=== PATIENT | female | born 1965 | race Caucasian/White ===

== ENCOUNTER → 2023-10-24 13:58 | Outpatient (BNVA) | payer OTHER, SELFPAY | PROVIDERS: Family Provider Psychiatry & Neurology Neurology; PCP Nurse Practitioner Family; Visit Provider Orthopaedic Surgery | DX: M54.2 Cervicalgia (principal); G89.29 Other chronic pain; M54.9 Dorsalgia, unspecified; M47.22 Other spondylosis with radiculopathy, cervical region | CPT/HCPCS: 72050; 72072 ==

== ENCOUNTER → 2024-02-14 15:00 | Outpatient (BNVA) | payer OTHER, MEDICAID, SELFPAY | PROVIDERS: Family Provider Psychiatry & Neurology Neurology; PCP Nurse Practitioner Family; Visit Provider Family Medicine | DX: I10 Essential (primary) hypertension (principal); E11.9 Type 2 diabetes mellitus without complications | CPT/HCPCS: 80053; 80061; 83036; 85025 ==

== ENCOUNTER 2024-02-27 16:33 | Outpatient (CLI) | payer OTHER, MEDICAID, SELFPAY ==
--- NOTE | 2024-02-27 16:45 | MR_ITS ---
WS: [id number] MRI CERVICAL SPINE NONCONTRAST TECHNIQUE: Sagittal T1, T2 and STIR imaging. Axial T2, gradient, and fiesta imaging. CLINICAL INFORMATION: neck pain COMPARISON: MRI 2013 FINDINGS: Straightening of the normal cervical lordosis. Mild spondylitic changes. Cord signal is normal. Small central protrusions at C4-C6 progressed since 2013. Cord signal is normal. C2-C3: Normal. C3-C4: Moderate RIGHT facet arthropathy. Spinal canal and foramina are patent. C4-C5: Small central disc protrusion. Moderate facet arthropathy. Mild LEFT greater than RIGHT forami nal narrowing. C5-C6: Small central disc osteophyte protrusion. Mild central canal stenosis. Slight contact of the c ervical cord. Mild to moderate LEFT greater than RIGHT bony foraminal narrowing. Mild facet arthropat hy. C6-C7: Tiny shallow central protrusion. Slight contact of the cervical cord. Mild central canal steno sis. Mild LEFT greater than RIGHT foraminal narrowing. C7-T1: Normal. Visualized brain stem structures: Normal. Prevertebral soft tissues: Normal. MR/MR cervical spin wo con* [id number] IMPRESSION: 1. Small central disc protrusions progressed compared to previous at C4-C6. 2. Mild central canal stenosis C5-C6 and C6-C7 with slight contact of the cer vical cord. 3. Mild to moderate LEFT greater than RIGHT bony foraminal narrowing C5-C6. 4. Moderate facet arthropathy RIGHT C3-C4, RIGHT C4-C5.
== END 2024-02-27 16:34 | disposition home or self-care (01) ==
LOC: RAD 16:33
PROVIDERS: PCP Family Medicine; Visit Provider Orthopaedic Surgery
DX: M47.892 Other spondylosis, cervical region (principal); M99.61 Osseous and subluxation stenosis of intervertebral foramina of cervical region
CPT/HCPCS: 72141

== ENCOUNTER 2024-07-09 06:00 | Outpatient (RCR) | payer OTHER, MEDICAID, SELFPAY | END 2024-07-26 23:59 | disposition home or self-care (01) | LOC: WPT 06:00 | PROVIDERS: Visit Provider Nurse Practitioner Family | DX: M54.9 Dorsalgia, unspecified (principal); M54.2 Cervicalgia | CPT/HCPCS: 97161 ==

== ENCOUNTER 2024-07-27 06:00 | Outpatient (RCR) | payer OTHER, MEDICAID, SELFPAY | END 2024-08-26 23:59 | disposition home or self-care (01) | LOC: WPT 06:00 | PROVIDERS: Visit Provider Nurse Practitioner Family | DX: M54.2 Cervicalgia (principal) | CPT/HCPCS: 97110; 97530 ==

== ENCOUNTER 2024-12-27 05:00 | Outpatient (RCR) | payer MEDICAID, SELFPAY | END 2025-01-26 23:59 | disposition home or self-care (01) | LOC: WPT 05:00 | PROVIDERS: PCP Family Medicine; Visit Provider Family Medicine | DX: M54.9 Dorsalgia, unspecified (principal); G89.29 Other chronic pain | CPT/HCPCS: 97161 ==

== ENCOUNTER → 2025-01-01 15:58 | Outpatient (BNVA) | payer OTHER, MEDICAID, SELFPAY | PROVIDERS: PCP Family Medicine; Visit Provider Family Medicine | DX: I10 Essential (primary) hypertension (principal); E11.9 Type 2 diabetes mellitus without complications; M54.9 Dorsalgia, unspecified; G89.29 Other chronic pain; M47.16 Other spondylosis with myelopathy, lumbar region; F41.9 Anxiety disorder, unspecified; E78.00 Pure hypercholesterolemia, unspecified; K02.9 Dental caries, unspecified | CPT/HCPCS: 80053; 80061; 83036; 85025 ==

== ENCOUNTER 2025-01-04 18:58 | Emergency (ER) | payer MEDICAID, SELFPAY ==
--- OUTSIDE RECORDS SUMMARY | 2025-01-04 15:27 | XMS_ITS | Encounter Summary ---
[facility] Organization [facility] Address [address] [place] [address] Care Team Providers Care Timber Management Assistant Name Role Phone Saima Reid DO Primary Care Provider Reason for Visit * Reason Comments Leg Pain Encounter Details Date Type Department Care Team (Late st Contact Info) Description 01/04/2025 3:27 PM CDT - 01/04/2025 6:11 PM CDT Emergency [facility] Emergency Medicine [facility] [address] [address] Harley Renee MD [facility] [address] [address] Acute superficial venous thrombosis of left lower extremity (Primary Dx); Elevated d-dimer Discharge Disposition: Acute Care Hospital Social History Tobacco Use Types Packs/Day Years Used Date Smoking Tobacco: Every Day Cigarettes 0.3 25 Smokeless Tobacco: Never Alcohol Use Standard Drinks/Week Comments Not Currently 0 (1 standard drink = 0.6 oz pur e alcohol) Comments No Sex and Gender Information Value Date Recorded Sex Assigned at Not on file Legal 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 Gender Identity Not on file Sexual Orientation Not on file documented as of this encounter Last Filed Vital Signs Vital Sign Reading Time Taken Comments Blood Pressure 138/77 01/04/2025 6:00 PM CDT Pulse 60 01/04/2025 6:00 PM CDT Temperature 36.7 C (98 F) 01/04/2025 6:00 PM CDT Respiratory Rate 14 01/04/2025 3:32 PM CDT Oxygen Saturation 98% 01/04/2025 6:00 PM CDT Inhaled Oxygen Concentration - - Weight 72.9 kg (160 lb 12.8 oz) 01/04/2025 3:32 PM CDT Height 172.7 cm (5' 8 ) 01/04/2025 3:32 PM CDT Body Mass Index 24.45 01/04/2025 3:32 PM CDT documented in this encounter Medications at Time of Discharge POTASSIUM CHLORIDE ORAL Take by mouth daily. furosemide (LASIX ORAL) Take by mouth daily. atorvastatin (LIPITOR) 10 mg tablet Take 10 mg by mouth daily. metoprolol tartrate (LOPRESSOR) 25 mg tablet Take 25 mg by mouth 2 times daily. celecoxib (CeleBREX) 50 mg capsule Take 50 mg by mouth. amLODIPine (NORVASC) 10 mg tablet Take 10 mg by mouth 2 times daily. HYDROcodone-acet aminophen (NORCO) 10-325 mg Tablet Take 1 Tablet by mouth every 8 hours as needed for Pain, Moderate. gabapentin (NEURONTIN) 100 mg capsule Take 100 mg by mouth 3 times daily. naproxen sodium (ALEVE) 220 mg Tablet Take 220 mg by mouth. insulin aspart protamine-aspart (NovoLOG MIX 70-30) 100 unit/mL (70-30) pen syringeIndicatio ns:Type 2 diabetes mellitus without complication, without long-term current use of insulin ([facility]) Inject 20 Units by subcutaneous injection 2 times daily with meals. 3 mL 10/14/2021 documented as of this encounter ED Notes * Deneen Nguyễn RN - 01/04/2025 4:41 PM CDT Radiology at bedside. This author is working in an alternative role of registered nurse during this documentation. * Deneen Nguyễn RN - 01/04/2025 3:29 PM CDT Keyla Curriestephany 59 y.o. female, arrived to the ED via TRANSPORTATION: private vehicle for complaints of Chief Complaint Patient presents with Leg Pain Patient reports a broken blood vessel in the left anterior ankle and today has developed lower extremity edema and pain. Vitals taken, patient placed on monitor, clothing removed as needed per policy, privacy provided to patient. Respiratory: WDL - Regular rhythm, symmetrical chest expansion, no dyspnea , Cardiac/Circulatory: WDL - No numbness or tingling, no chest pain , Skin: WDL - Normal colorfor ethnicity, skin intact, patient is Alert and Oriented x4, pain scale: 6/10, findings; bleeding:without any bleeding noted. Behavior during evaluation: appropriate. Belongings secured, patient Weapons assessment: denied possession of any weapons or firearms at this time. Patient comforted, all q uestions answered to the best of the staff's ability, education performed, and left patient in the room with the call light in reach, bed in lowest position, wheels locked, side rails up. This author is working in an alternative role of registered nurse during this documentation. * Harley Renee MD - 01/04/2025 3:25 PM CDT HISTORY OF PRESENT ILLNESS History of Present Illness This is a patient with a history of diabetes presenting with leg pain. The patient reports experiencing pain in her leg for the past 2 days. The pain is localized to the area of a visible superficial blood vessel over the anterior aspect of the distal tibia and proximalankle area, and is described as feeling like a needle prick on even light palpation. The pain is exacerbated by touch and is confined to the area around the blood vessel. The patient has not applied any ice or heat to the area. Patient is unsure if she had any notable injury to the left leg in any recent days. Stated because she has not been sleeping well, could have bumped it on something. The patient has sensation in her toes and does not experience any pressure or heat in the affected area. She has a history of varicose veins, venous stasis dermatitis, which have not caused discomfort in the past. PAST MEDICAL HISTORY REVIEWED MEDICAL: Patient has a past medical history of Anxiety, Arthritis, Chronic back pain, Chronic neck pain, Depression, Diabetes mellitus ([facility]), Diabetes mellitus (CMS/HCC) (06/2018), H/O degenerative disc disease, HTN (hypertension), HTN (hypertension), Nerve damage, and Seizure disorder ([facility]). SURGICAL: Patient has a past surgical history that includes appendectomy; tubal ligation; appendectomy; surgical other; hysterectomy (Bilateral, 2003); and hysterectomy (2005). ALLERGIES Hydroxyzine pamoate, Pregabalin, Penicillins, and Sulfa (sulfonamide antibiotics) PHYSICAL EXAM INITIAL VS BP: 128/78 (01/04/25 1532), Heart Rate: (!) 58 bpm (01/04/25 1532), Resp: 14 (01/04/25 1532), Pulse: 68 (01/04/25 1600), Temp: 98 ??F (36.7 ??C) (01/04/25 153), Temp src: Temporal (01/04/25 153), SpO2: 97 % (01/04/25 153), Height: 5' 8 (172.7 cm) (01/04/25 153), Weight: 72.9 kg (160 lb 12.8 oz) (01/04/25 1532), BMI (Calculated): 24.44 (01/04/25 153) No LMP recorded. Patient has had a hysterectomy. Blood pressure 118/74, pulse 68, temperature 98 ??F (36.7 ??C), temperature source Temporal, resp. rate 14, height 5' 8 (1.727 m), weight 72.9 kg (160 lb 12.8 oz), SpO2 95%. Physical Exam Vitals and nursing note reviewed. Constitutional: General: She is in acute distress. Appearance: She is normal weight. She is not ill-appearing. HENT: Mouth/Throat: Mouth: Mucous membranes are moist. Eyes: Extraocular Movements: Extraocular movements intact. Pupils: Pupils are equal, round, and reactive to light. Cardiovascular: Rate and Rhythm: Normal rate and regular rhythm. Pulses: Normal pulses. Pulmonary: Effort: Pulmonary effort is normal. No respiratory distress. Musculoskeletal: General: Normal range of motion. Comments: Left ankle pain and swelling on the anterior aspect and slightly proximal with visible superficial vein that is tortuous and small ball-like areas within the vein at 6 different points. Altogether the area is about an inch in diameter. There is swelling of the foot dorsum and ankle area as well. There is ecchymosis and some tenderness surrounding the superficial distended vein. Skin: General: Skin is warm and dry. Capillary Refill: Capillary refill takes less than 2 seconds. Findings: Bruising present. Neurological: General: No focal deficit present. Mental Status: She is alert and oriented to person, place, and time. Mental status is at baseline. Cranial Nerves: No cranial nerve deficit. Sensory: No sensory deficit. Psychiatric: Mood and Affect: Mood normal. Behavior: Behavior normal. Physical Exam Musculoskeletal: Swelling and tenderness noted in the lower extremity, particularly around a superficial vessel. No pain noted in other areas of the leg. Patient reports sensation intact in toes. Integument/Skin: Presence of varicose veins noted. Swelling observed around the affected area. Dorsalis pedis and posterior tibialis are palpable. DIAGNOSTICS LAB: CBC WITH DIFFERENTIAL - Abnormal Result Value WBC 5.9 RBC 3.99 HEMOGLOBIN 11.7 HEMATOCRIT 35.1 MCV 88.0 MCH 29.3 MCHC 33.3 RDW 12.5 RDW-STDEV 40.3 PLATELETS 228 MPV 9.7 (*) NEUTROPHILS 41 LYMPHOCYTES 47 MONOCYTES 8 EOSINOPHILS 3 BASOPHILS 1 IMMATURE GRANULOCYTES 0 NEUTROPHIL ABSOLUTE 2.43 LYMPHOCYTE ABSOLUTE 2.76 MONOCYTE ABSOLUTE 0.45 (*) EOSINOPHIL ABSOLUTE 0.19 BASOPHILS ABSOLUTE 0.04 IMMATURE GRANULOCYTES ABSOLUTE 0.01 D-DIMER - Abnormal D-DIMER QUANT 0.57 (*) COMPREHENSIVE METABOLIC PANEL - Abnormal SODIUM 140 POTASSIUM 3.9 CHLORIDE 103 CO2 25 CALCIUM 10.8 (*) BUN 17 CREATININE 0.99 (*) GLUCOSE 80 TOTAL PROTEIN 6.9 ALBUMIN 4.3 BILIRUBIN TOTAL 0.3 ALKALINE PHOSPHATASE 80 AST 19 ALT 11 GFR >60 ANION GAP 12 PROTIME-INR - Normal PROTIME 12.9 INR 1.0 PTT - Normal PTT 26.2 C-REACTIVE PROTEIN - Normal CRP <3.0 SEDIMENTATION RATE - Normal ESR (SEDIMENTATION RATE) 10 RADIOLOGY: XR ANKLE 3+ VW LEFT Radiologist Impression IMPRESSION: Please see below. Exam: XR ANKLE 3+ VW LEFT Date/Time of Exam: 01/04/2025 4:44 PM Reason For Exam: Pain, Swelling. Diagnosis: See Reason for Exam. Comparison: None. Findings: Three views of the ankle demonstrate no acute fracture or dislocation.By malleolar subcutaneous edema/soft tissue swelling. No significant joint space loss or productive change is identified. The ankle mortise is intact. Impression: 1. Negative for acute osseous abnormality. EKG: PROCEDURES Procedures MEDICAL DECISION MAKING AND PLAN OF CARE Assessment & Plan Initial Assessment: Leg pain with swelling and discomfort, likely due to superficial clots in the vein. Differential Diagnosis: - Superficial vein thrombosis: Possible clots in the vein causing pain and swelling. Plan: Ultrasound performed to examine vessels, advised to apply ice and elevate leg. - Varicose veins: Presence of varicose veins noted. Plan: Monitor for changes, no immediate treatment necessary. ED Course: - Ultrasound performed to examine vessels. Final Assessment: Ultrasound performed to examine vessels, identified possible superficial clots. Advised to apply ice and elevate leg to reduce swelling. Clinical Impression: - Superficial vein thrombosis - Varicose veins Medical Decision Making At bedside since there is no official biosolids management technician here at the hospital, was able to visualize a vein that is distal to the area of concern on the distal tibia and same vein extending proximally, however the vein gains disorganized orientation with subcutaneous edema and probably blood collection in the subcutaneous area. Concern for possible superficial venous thrombosis. Since do not have ultrasound in the facility today, believe that patient needs an ultrasound of theleft lower extremity to rule out DVT. Did not want to start on apixaban or any other anticoagulation, since patient may not get ultrasound until sometime next week and it may be a false negative if the clot is already dissolved by that point. Reached out to [facility] in [place] and discussed the case with ER physician to obtain ultrasound and further management. Patient is in agreement with the plan of transfer and will go by POV. Amount and/or Complexity of Data Reviewed Labs: ordered. Radiology: ordered. Clinical Scoring & Consults Current Discharge Medication List CONTINUE these medications which have NOT CHANGED Details POTASSIUM CHLORIDE ORAL Take by mouth daily. furosemide (LASIX ORAL) Take by mouth daily. atorvastatin (LIPITOR) 10 mg tablet Take 10 mg by mouth daily. metoprolol tartrate (LOPRESSOR) 25 mg tablet Take 25 mg by mouth 2 times daily. celecoxib (CeleBREX) 50 mg capsule Take 50 mg by mouth. amLODIPine (NORVASC) 10 mg tablet Take 10 mg by mouth 2 times daily. HYDROcodone-acetaminophen (NORCO) 10-325 mg Tablet Take 1 Tablet by mouth every 8 hours as needed for Pain, Moderate. gabapentin (NEURONTIN) 100 mg capsule Take 100 mg by mouth 3 times daily. naproxen sodium (ALEVE) 220 mg Tablet Take 220 mg by mouth. insulin aspart protamine-aspart (NovoLOG MIX 70-30) 100 unit/mL (70-30) pen syringe Inject 20 Unitsby subcutaneous injection 2 times daily with meals. Qty: 3 mL, Refills: 0 Associated Diagnoses: Type 2 diabetes mellitus without complication, without long-term current use of insulin ([facility]) STOP taking these medications ibuprofen (MOTRIN) 200 mg tablet Comments: Reason for Stopping: LAST VS BP: 118/74 (01/04/251599), Heart Rate: (!) 58 bpm (01/04/251531), Resp: 14 (01/04/251531), Pulse: 68 (01/04/251599), Temp: 98 ??F (36.7 ??C) (01/04/251599), Temp src: Temporal (01/04/251599), SpO2: 95 % (01/04/251599) CLINICAL IMPRESSION Diagnoses Diagnosis Comment Added By Time Added Acute superficial venous thrombosis of left lower extremity [I82.812] Harley Renee MD 01/04/2025 5:32 PM Elevated d-dimer [R79.89] Harley Renee MD 01/04/2025 5:32 PM DISPOSITION, EDUCATION AND MEDICATION RECONCILIATION Medications reconciled. See after visit summary for patient education on discharged patients. ED Disposition ED Disposition Transfer Condition Stable User Harley Renee MD Date/Time Sat Jan 04, 2025 5:53 PM Comment -- documented in this encounter Plan of Treatment Not on file documented as of this encounter Procedures Procedure Name Priority Date/Time Associated Diagnosis Comments XR ANKLE 3+ VW LEFT Stat 01/04/2025 4 :44 PM CDT CBC WITH DIFFERENTIAL Stat 01/04/2025 4:30 PM CDT PTT Stat 01/04/2025 4:30 PM CDT SEDIMENTATION RATE Stat 01/04/2025 4: 30 PM CDT PROTIME-INR Stat 01/04/2025 4:30 PM CDT D-DIMER Stat 01/04/2025 4:30 PM CDT C-REACTIVE PROTEIN Stat 01/04/2025 4: 30 PM CDT COMPREHENSIVE METABOLIC PANEL Stat 01/04/2025 4:30 PM CDT documented in this encounter Results * XR ANKLE 3+ VW LEFT (01/04/2025 4:44 PM CDT) Anatomical Region Laterality Modality Ankle / Foot Computed Radiogr aphy 01/04/2025 4:44 PM CDT Impressions 01/04/2025 4:54 PM CDT IMPRESSION: Please see below. Exam: XR ANKLE 3+ VW LEFT Date/Time of Exam: 01/04/2025 4:44 PM Reason For Exam: Pain, Swelling. Diagnosis: See Reason for Exam. Comparison: None. Findings: Three views of the ankle demonstrate no acute fracture or dislocation.By malleolar subcutaneous edema/soft tissue swelling. No significant joint space loss or productive change is identified. The ankle mortise is intact. Impression: 1. Negative for acute osseous abnormality. Narrative Procedure Note Karli David MD - 01/04/2025 IMPRESSION: Please see below. Exam: XR ANKLE 3+ VW LEFT Date/Time of Exam: 01/04/2025 4:44 PM Reason For Exam: Pain, Swelling. Diagnosis: See Reason for Exam. Comparison: None. Findings: Three views of the ankle demonstrate no acute fracture or dislocation.By malleolar subcutaneous edema/soft tissue swelling. No significant joint space loss or productive change is identified. The ankle mortise is intact. Impression: 1. Negative for acute osseous abnormality. Harley Renee MD DIAGNOSTIC IMAGING ORDERABLES F inal Result * SEDIMENTATION RATE (01/04/2025 4:30 PM CDT) ESR (SEDIMENTATION RATE) 10 0 - 30 mm/Hr 01/04/2025 5:01 PM CDT [facility] Blood Venipuncture / Unknown 01/04/2025 4:30 PM CDT 01/04/2025 4:36 PM CDT Narrative [facility] - 01/04/2025 5:01 PM CDT Tube Lot: #[id number] Exp Date: 05/28/2026 QC1 LOT [id number] EXP.06/02/2025 QC2 LOT [id number] EXP.06/02/2025 us Harley Renee MD HEMATOLOGY ORDERABLES Final Res ult Performing Organization Address [facility]/ZIP Co de Phone Number [id number] [address] [place] [phone] * C-REACTIVE PROTEIN (01/04/2025 4:30 PM CDT) CRP <3.0 <5.0 mg/L 01/04/2025 4:5 9 PM CDT [facility] Blood Venipuncture / Unknown 01/04/2025 4:30 PM CDT 01/04/2025 4:36 PM CDT us Harley Renee MD CHEMISTRY ORDERABLES Final Resu lt Performing Organization Address [facility]/ZIP Co de Phone Number [facility] [id number] [address] [place] [phone] * (ABNORMAL) COMPREHENSIVE METABOLIC PANEL (01/04/2025 4:30 PM CDT) SODIUM 140 136 - 145 mmol/L 01/04/2025 4:58 PM CDT [facility] POTASSIUM 3.9 3.5 - 5.1 mmol/L 01/04/2025 4:58 PM CDT [facility] CHLORIDE 103 98 - 107 mmol/L 01/04/2025 4:58 PM CDT [facility] CO2 25 22 - 29 mmol/L 01/04/2025 4:58 PM [facility] CALCIUM 10.8(H) 8.6 - 10.0 mg/dL 01/04/2025 4:58 PM [facility] BUN 17 6 - 20 mg/dL 01/04/2025 4:58 PM [facility] CREATININE 0.99(H) 0.51 - 0.95 mg/dL 01/04/2025 4:58 PM [facility] GLUCOSE 80 74 - 99 mg/dL 01/04/2025 4:58 PM [facility] TOTAL PROTEIN 6.9 6.6 - 8.7 g/dL 01/04/2025 4:58 PM [facility] ALBUMIN 4.3 3.5 - 5.2 g/dL 01/04/2025 4:58 PM [facility] BILIRUBIN TOTAL 0.3 0.0 - 1.2 mg/dL 01/04/2025 4:58 PM [facility] ALKALINE PHOSPHATASE 80 35 - 104 U/L 01/04/2025 4:58 PM [facility] AST 19 0 - 35 U/L 01/04/2025 4:58 PM [facility] ALT 11 0 - 35 U/L 01/04/2025 4:58 PM [facility] GFR >60 >=60 mL/min/1.7 3 sq meter 01/04/2025 4:58 PM [facility] Comment:eGFR calculated with 2020 CKD-EPI equation. Vegetarian diet, extremely high or low muscle mass, and may affect results. Cystatin C with Glomerular Filtration Rate is a suitable alternative for these patients. ANION GAP 12 5 - 20 mmol/L 01/04/2025 4:58 PM [facility] Blood Venipuncture / Unknown 01/04/2025 4:30 PM CDT 01/04/2025 4:36 PM CDT us Harley Renee MD CHEMISTRY ORDERABLES Final Resu lt [facility] CLIA # [id number] [address] [place] [id number] * (ABNORMAL) D-DIMER (01/04/2025 4:30 PM CDT) D-DIMER QUANT 0.57(H) <0.50 ug/mL FEU 01/04/2025 4:59 PM CDT [facility] Blood Venipuncture / Unknown 01/04/2025 4:30 PM CDT 01/04/2025 4:36 PM CDT Narrative [facility] - 01/04/2025 4:59 PM CDT D-Dimer assay cutoff value for exclusion of DVT and/or PE is <0.50 ug/mL FEU. As D-Dimer levels increase naturally with age, age stratification for patients over 50 is potentially more appropriate in determining whether a patient should undergo further evaluation for DVT and/or PE than a general cutoff of 0.50 ug/mL FEU. Clinical consideration is recommended. Age Stratified Cutoff Values: 50-60 years: 0.50-0.60 ug/mL FEU 61-70 years: 0.61-0.70 ug/mL FEU 71-80 years: 0.71-0.80 ug/mL FEU us Harley Renee MD HEMATOLOGY ORDERABLES Final Res ult Performing Organization Address City/[facility]/ZIP Co de Phone Number [facility] CLIA # [id number] [address] [place] [id number] * PTT (01/04/2025 4:30 PM CDT) PTT 26.2 25.1 - 35.4 seconds 01/04/2025 4:58 PM CDT [facility] Blood Venipuncture / Unknown 01/04/2025 4:30 PM CDT 01/04/2025 4:36 PM CDT us Harley Renee MD HEMATOLOGY ORDERABLES Final Res ult [facility] CLIA # [id number] [address] [place] [address] * PROTIME-INR (01/04/2025 4:30 PM CDT) PROTIME 12.9 12.1 - 14.3 Seconds 01/04/2025 4:58 PM CDT [facility] INR 1.0 0.9 - 1.1 01/04/2025 4:58 PM CDT [facility] Blood Venipuncture / Unknown 01/04/2025 4:30 PM CDT 01/04/2025 4:36 PM CDT us Harley Renee MD HEMATOLOGY ORDERABLES Final Res ult [id number] [address] [place] [phone] * (ABNORMAL) CBC WITH DIFFERENTIAL (01/04/2025 4:30 PM CDT) WBC 5.9 4.0 - 10.0 K/uL 01/04/2025 4:52 PM CDT [facility] RBC 3.99 3.93 - 5.22 M/uL 01/04/2025 4:52 PM T [facility] HEMOGLOBIN 11.7 11.2 - 15.7 g/dL 01/04/2025 4:52 PM T [facility] HEMATOCRIT 35.1 34.1 - 44.9 % 01/04/2025 4:52 PM T [facility] MCV 88.0 79.4 - 94.8 fL 01/04/2025 4:52 PM CDT [facility] MCH 29.3 25.6 - 32.2 pg 01/04/2025 4:52 PM [facility] MCHC 33.3 32.2 - 35.5 g/dL 01/04/2025 4:52 PM T [facility] RDW 12.5 11.0 - 14.5 % 01/04/2025 4:52 PM [facility] RDW-STDEV 40.3 36.9 - 56.9 fL 01/04/2025 4:52 PM [facility] PLATELETS 228 163 - 337 K/uL 01/04/2025 4:52 PM [facility] MPV 9.7(L) 10.0 - 14.8 fL 01/04/2025 4:52 PM [facility] NEUTROPHILS 41 34 - 71 % 01/04/2025 4:52 PM [facility] LYMPHOCYTES 47 19 - 52 % 01/04/2025 4:52 PM [facility] MONOCYTES 8 5 - 13 % 01/04/2025 4:52 PM [facility] EOSINOPHILS 3 1 - 6 % 01/04/2025 4:52 PM [facility] BASOPHILS 1 0 - 1 % 01/04/2025 4:52 PM [facility] IMMATURE GRANULOCYTES 0 % 01/04/2025 4:52 PM [facility] NEUTROPHIL ABSOLUTE 2.43 1.56 - 6.13 K/uL 01/04/2025 4:52 PM [facility] LYMPHOCYTE ABSOLUTE 2.76 1.20 - 3.40 K/uL 01/04/2025 4:52 PM [facility] MONOCYTE ABSOLUTE 0.45(H) 0.24 - 0.36 K/uL 01/04/2025 4:52 PM [facility] EOSINOPHIL ABSOLUTE 0.19 0.04 - 0.36 K/uL 01/04/2025 4:52 PM [facility] BASOPHILS ABSOLUTE 0.04 0.01 - 0.08 K/uL 01/04/2025 4:52 PM [facility] IMMATURE GRANULOCYTES ABSOLUTE 0.01 K/uL 01/04/2025 4:52 PM [facility] Blood Venipuncture / Unknown 01/04/2025 4:30 PM CDT 01/04/2025 4:36 PM CDT us Harley Renee MD HEMATOLOGY ORDERABLES Final Res ult [facility] # [id number] [address] [place] [phone] documented in this encounter Visit Diagnoses Diagnosis Acute superficial venous thrombosis of left lower extremity- Primary Elevated d-dimer Abnormal coagulation profile documented in this encounter Care Teams Timber Management Assistant Relationship Specialty Start Date End Date Saima Reid DO [address] [place] [address] PCP - General Family Practice 06/06/22 documented as of this encounter
[2025-01-04 19:03] VITALS: BP 129/82; PULSE 57; RESP 16; TEMP 36.9; O2SAT 99; BMI 24.3
--- NOTE | 2025-01-04 19:11 | USR_ITS ---
PROCEDURE INFORMATION: Exam: US Duplex Left Lower Extremity Veins, Limited Exam date and time: 01/04/2025 7:51 PM Age: 59 years old Clinical indication: Swelling (edema) of limb; Lower extremity, left TECHNIQUE: Imaging protocol: Real-time duplex ultrasound of the left extremity with 2-D leon scale, color Doppler flow and spectral waveform analysis including responses to compression and other maneuvers (when performed) with image documentation. Limited exam focused on the left lower extremity veins. COMPARISON: No relevant prior studies available. FINDINGS: Left deep veins: Unremarkable. The common femoral, femoral, proximal profunda femoral and popliteal veins are patent without thrombus. Normal Doppler waveforms. Normal compressibility and/or augmentation response. Superficial veins: Greater saphenous vein at the saphenofemoral junction is patent without thrombus. Soft tissues: Unremarkable. US/CV venous duplex [facility] [id number] IMPRESSION: No evidence of deep vein thrombosis. No definite abnormality at area of concern.
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
--- OUTSIDE RECORDS SUMMARY | 2025-01-04 19:18 | XMS_ITS | Encounter Summary ---
Author Organization [facility] Address [address] [place] [address] Care Team Providers Care Structural Metal Worker Name Role Phone Neto Dumont MD Primary Care Provider +1 [phone] Encounter Details Date Type Department Care Team (Latest Contact Info) Description 04/18/2001 Outpatient Historical [facility] Medicine [place] [address] [address] Reinaldo Yoder, NO ADDRESS ON FILE ANXIETY STATE NOS (Primary Dx); Abn Pap Smear-Cervix; SCREENING MAL NEOP-RECTUM Social History Tobacco Use Types Packs/Day Years Used Date Smoking Tobacco: Never Assessed Comments Unknown Sex and Gender Information Value Date Recorded Sex Assigned at Not on file Legal Sex Female 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
--- OUTSIDE RECORDS SUMMARY | 2025-01-04 19:18 | XMS_ITS | Patient Health Record ---
Author Organization [facility] Address [address] [place], [place] [address] Care Team Providers Care Brush Machine Setter Name Role Phone Marty Chiu Primary Care Provider Lisha Mcknight MD, Simeon Unavailable [phone] Allergies Allergen (clinical drug ingredient) Drug/Non Drug Allergy documented on EMR Reaction Allergy Type Onset Date Status pregabalin Lyrica (uncoded) severe nightmares Allergy Active penicillin Unknown Drug Allergy Active Reason For Referral No Information Medications Medication SIG (Take, Route, Fr equency, Duration) Notes Start Date End Date Status naproxen sodium 220 mg 1 tab orally ever y 8 hours, as needed Active ALPRAZolam 0.5 mg 1 tab orally 3 times a day Active oxyCODONE 10 mg 1 tab po orally Q4H prn pain (max 5/day); Duration: 30 days Active Problems Problem Type SNOMED Code ICD Code Onset Dates Problem Status W/U Status Risk Notes Problem Cervical spondylosis without myelopathy (305684222) Cervical spondylosis without myelopathy (721.0) Active confirmed Problem Neck pain (38173727) Neck pain (723.1) Active confirmed Problem Long-term drug therapy (624848578) LONG-TERM USE MEDS NEC (V58.69) Active confirmed r/o substance abuse Problem Displacement of cervical intervertebral disc without myelopathy (37324788) Cervical (w/out myelopathy) intervertebral disc disorder (722.0) Active confirmed Problem Lumbosacral spondylosis without myelopathy (93773431) Spondylosis without myelopathy or radiculopathy, lumbar region (M47.816) Active confirmed Problem Chronic pain (30019936) Other chronic pain (G89.29) Active confirmed Problem Degeneration of lumbar intervertebral disc (16755641) Other intervertebral disc degeneration, lumbar region (M51.36) Active confirmed Problem Cervicalgia (58674347) Cervicalgia (M54.2) Active confirmed Problem Backache (945262998) Dorsalgia, unspecified (M54.9) Active confirmed Plan Of Treatment No Information Insurance Providers Payer Name Payer Address Payer Phone Subscriber Number Group Number Insured Name Patient Relationship to Insured Coverage Start Date Coverage End Date [facility] [facility] [address] [place] [address] [id number] Keyla Brooke Self - patient is the insured Medical (General) History Medical History History ICD Code Chronic pain Low back pain Neck pain Migraine headaches Hypertension Polycystic ovary disease Tension headhaches Cancer, ovarian Joint pain Depression and anxiety Herniated disc, cervical Anemia Cervical spondylosis Cervical radiculopathy Degenerative disc disease, lumbaer Facet arthritis, degenerative, lumbar sp ine Type 2 diabetes mellitus Arthritis Seizure disorder Nerve damage Hyperlipidemia Surgical History Surgery Date(Month/Year) Cholecystectomy Hysterectomy 2006, 2008 Appendectomy 1981 Oophorectomy 1994 Hospitalization History Reason Date(Month/Year) Childbirth x 2
--- OUTSIDE RECORDS SUMMARY | 2025-01-04 19:18 | XMS_ITS | Encounter Summary ---
Author Organization [facility] Address [address] [place] [address] Care Team Providers Care Camp Advisor Name Role Phone Neto Dumont MD Primary Care Provider +1 [phone] Encounter Details Date Type Department Care Team (Latest Contact Info) Description 09/03/[address] 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
--- OUTSIDE RECORDS SUMMARY | 2025-01-04 19:18 | XMS_ITS | Encounter Summary ---
Author Organization [facility] Address [address] [place] [address] Care Team Providers Care Parking Attendant Name Role Phone Neto Dumont MD Primary Care Provider +1 [phone] Encounter Details Date Type Department Care Team (Latest Contact Info) Description 04/16/2002 Outpatient Historical [facility] Medicine [place] [address] [address] Reinaldo Yoder, DO NO ADDRESS ON FILE SCREENING MAL NEOP-CERVIX (Primary Dx) Social History Tobacco Use Types Packs/Day Years Used Date Smoking Tobacco: Never Assessed Comments Unknown Sex and Gender Information Value Date Recorded Sex Assigned at Not on file Legal Sex Female 5:14 AM 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
--- OUTSIDE RECORDS SUMMARY | 2025-01-04 19:18 | XMS_ITS | Encounter Summary ---
Author Organization [facility] Address [address] [place] [address] Care Team Providers Care Outboard Technician Name Role Phone Neto Dumont MD Primary Care Provider +1 [phone] Encounter Details Date Type Department Care Team (Late st Contact Info) Description 07/16/2018 Lab Requisition [facility] Laboratory Services [place] [address] [place] [address] Deonna Key, [facility] [address] [place] [id number] Social History Tobacco Use Types Packs/Day Years Used Date Smoking Tobacco: Every Day Cigarettes 1 10 Smokeless Tobacco: Never Alcohol Use Standard Drinks/Week Comments Yes 0 (1 standard drink = 0.6 oz pur e alcohol) occasionally Comments No Sex and Gender Information Value Date Recorded Sex Assigned at Not on file Legal Sex Female 5:14 AM SECURITY ANALYST Gender Identity Not on file Sexual Orientation Not on file documented as of this encounter Plan of Treatment Not on file documented as of this encounter Procedures Procedure Name Priority Date/Time Associated Diagnosis Comments COMPREHENSIVE METABOLIC PANEL Routine 07/16/2018 9:00 PM SECURITY ANALYST documented in this encounter Results * (ABNORMAL) COMPREHENSIVE METABOLIC PANEL (07/16/2018 9:00 PM SECURITY ANALYST) SODIUM 140 136 - 145 mmol/L 07/17/2018 12:35 AM SECURITY ANALYST [facility] POTASSIUM 3.7 3.5 - 5.1 mmol/L 07/17/2018 12:35 AM SECURITY ANALYST [facility] CHLORIDE 101 98 - 107 mmol/L 07/17/2018 12:35 AM [facility] CO2 26 22 - 29 mmol/L 07/17/2018 12:35 AM [facility] CALCIUM 9.9 8.6 - 10.0 mg/dL 07/17/2018 12:35 AM [facility] BUN 15 6 - 20 mg/dL 07/17/2018 12:35 AM [facility] CREATININE 0.71 0.51 - 0.95 mg/dL 07/17/2018 12:35 AM [facility] GLUCOSE 125(H) 74 - 99 mg/dL 07/17/2018 12:35 AM [facility] TOTAL PROTEIN 7.3 6.6 - 8.7 g/dL 07/17/2018 12:35 AM [facility] ALBUMIN 4.4 3.5 - 5.2 g/dL 07/17/2018 12:35 AM [facility] BILIRUBIN TOTAL 0.2 0.0 - 1.2 mg/dL 07/17/2018 12:35 AM [facility] ALKALINE PHOSPHATASE 74 35 - 104 U/L 07/17/2018 12:35 AM [facility] AST 15 10 - 35 U/L 07/17/2018 12:35 AM [facility] ALT 17 10 - 35 U/L 07/17/2018 12:35 AM [facility] GFR >60 >=60 mL/min/1.7 3 sq meter 07/17/2018 12:35 AM [facility] Comment: eGFR has not been validated for use in the elderly (> 70 years of age), women, patients with serious co-morbid conditions, or persons with extremes of body size or muscle mass and should also be interpreted with caution in patients with acute kidney failure, dialysis dependent patients, patients reporting exceptional dietary intake (e.g. vegetarian diet, high protein diets, creatine supplementation), and patients with severe liver disease. Based on National Kidney Disease Education Program If patient is , please refer to the GFR result. GFR, >60 >=60 mL/min/1.7 3 sq meter 07/17/2018 12:35 AM [facility] ANION GAP 13 12 - 20 mmol/L 07/17/2018 12:35 AM SECURITY ANALYST [facility] Blood Collection / Unknown 07/16/2018 9:00 PM SECURITY ANALYST 07/17/2018 12:02 AM SECURITY ANALYST Deonna Key FIXING CARPENTER CHEMISTRY ORDERABLES Final Resu lt [facility] CLIA # [id number] [address] [address] documented in this encounter Visit Diagnoses Not on filedocumented in this encounter Care Teams Outboard Technician Relationship Specialty Start Date End Date Neto Dumont MD [address] [phone] PCP - General Family Practice 02/17/20 documented as of this encounter
--- OUTSIDE RECORDS SUMMARY | 2025-01-04 19:18 | XMS_ITS | Encounter Summary ---
Author Organization [facility] Address [address] [place] [address] Care Team Providers Care Senior Java Web Developer Name Role Phone Neto Dumont MD Primary Care Provider [phone] [phone] Encounter Details Date Type Department Care Team (Latest Contact Info) Description 07/06/2001 Outpatient Historical [facility] Medicine [place] [address] [address] Reinaldo Yoder, NO ADDRESS ON FILE MYALGIA AND MYOSITIS NOS (Primary Dx); Sprain of neck; Sprain thoracic region Social History Tobacco Use Types Packs/Day Years Used Date Smoking Tobacco: Never Assessed Comments Unknown Sex and Gender Information Value Date Recorded Sex Assigned at Not on file Legal Sex Female 5:14 AM FINGERPRINT EXPERT Gender Identity Not on file Sexual Orientation Not on file documented as of this encounter Plan of Treatment Not on file documented as of this encounter Visit Diagnoses Diagnosis Myalgia and myositis, unspecified- Primary Mylagia and myositis, unspecified Sprain of neck Neck sprain and strain Sprain thoracic region Sprain of thoracic region documented in this encounter Care Teams Senior Java Web Developer Relationship Specialty Start Date End Date Neto Dumont MD [address] [address] PCP - General Family Practice 02/17/20 documented as of this encounter
--- OUTSIDE RECORDS SUMMARY | 2025-01-04 19:18 | XMS_ITS | Encounter Summary ---
Author Organization [facility] Address [address] [place] [address] Care Team Providers Care Titrator Name Role Phone Neto Dumont MD Primary Care Provider +1 [phone] Encounter Details Date Type Department Care Team (Latest Contact Info) Description 02/09/2001 Outpatient Historical [facility] Medicine [place] [address] [address] Jose Riley MD [address] [address] Acute sinusitis, unspecified (Primary Dx); Acute bronchitis Social History Tobacco Use Types Packs/Day Years Used Date Smoking Tobacco: Never Assessed Comments Unknown Sex and Gender Information Value Date Recorded Sex Assigned at Not on file Legal Sex Female 5:14 AM VIDEO GAME CREATOR Gender Identity Not on file Sexual Orientation Not on file documented as of this encounter Plan of Treatment Not on file documented as of this encounter Visit Diagnoses Diagnosis Acute sinusitis, unspecified- Primary Acute bronchitis documented in this encounter Care Teams Titrator Relationship Specialty Start Date End Date Neto Dumont MD [address] [address] PCP - General Family Practice 02/17/20 documented as of this encounter
--- OUTSIDE RECORDS SUMMARY | 2025-01-04 19:18 | XMS_ITS | Encounter Summary ---
Author Organization [facility] Address [address] [place] [address] Care Team Providers Care Grinding Wheel Facer Name Role Phone Neto Dumont MD Primary Care Provider +1 -[phone] Encounter Details Date Type Department Care Team (Latest Contact Info) Description 04/22/2002 Outpatient Historical [facility] Medicine [place] [address] [address] Reinaldo Yoder, NO ADDRESS ON FILE DEPRESSIVE DISORDER NEC (Primary Dx) Social History Tobacco Use Types Packs/Day Years Used Date Smoking Tobacco: Never Assessed Comments Unknown Sex and Gender Information Value Date Recorded Sex Assigned at Not on file Legal Sex Female 5:14 AM SUPERVISOR FILES Gender Identity Not on file Sexual Orientation Not on file documented as of this encounter Plan of Treatment Not on file documented as of this encounter Visit Diagnoses Diagnosis Depressive disorder, not elsewhere classified- Primary documented in this encounter Care Teams Grinding Wheel Facer Relationship Specialty Start Date End Date Neto Dumont MD [address] [address] PCP - General Family Practice 02/17/20 documented as of this encounter
--- OUTSIDE RECORDS SUMMARY | 2025-01-04 19:18 | XMS_ITS | Encounter Summary ---
Author Organization [facility] Address [address] [place] [address] Care Team Providers Care Court Advocate Name Role Phone Neto Dumont MD Primary Care Provider +1 -[phone] Encounter Details Date Type Department Care Team (Latest Contact Info) Description 09/14/2001 Outpatient Historical [facility] Medicine [place] [address] [address] Reinaldo Yoder, NO ADDRESS ON FILE Periapical abscess (Primary Dx) Social History Tobacco Use Types Packs/Day Years Used Date Smoking Tobacco: Never Assessed Comments Unknown Sex and Gender Information Value Date Recorded Sex Assigned at Not on file Legal Sex Female 5:14 AM PRINCIPLE SOFTWARE ENGINEER Gender Identity Not on file Sexual Orientation Not on file documented as of this encounter Plan of Treatment Not on file documented as of this encounter Visit Diagnoses Diagnosis Periapical abscess- Primary Periapical abscess without sinus documented in this encounter Care Teams Court Advocate Relationship Specialty Start Date End Date Neto Dumont MD [address] [address] PCP - General Family Practice 02/17/20 documented as of this encounter
--- OUTSIDE RECORDS SUMMARY | 2025-01-04 19:18 | XMS_ITS | Encounter Summary ---
Author Organization [facility] Address [address] [place] [address] Care Team Providers Care Hvac Design Engineer Name Role Phone Neto Dumont MD Primary Care Provider +1 -[phone] Encounter Details Date Type Department Care Team (Latest Contact Info) Description 09/22/1999 Outpatient Historical [facility] Medicine [address] [address] Reinaldo Yoder, NO ADDRESS ON FILE Acute sinusitis, unspecified (Primary Dx) Social History Tobacco Use Types Packs/Day Years Used Date Smoking Tobacco: Never Assessed Comments Unknown Sex and Gender Information Value Date Recorded Sex Assigned at Not on file Legal Sex Female 5:14 AM OFFICE TECHNOLOGY PROFESSOR Gender Identity Not on file Sexual Orientation Not on file documented as of this encounter Plan of Treatment Not on file documented as of this encounter Visit Diagnoses Diagnosis Acute sinusitis, unspecified- Primary documented in this encounter Care Teams Hvac Design Engineer Relationship Specialty Start Date End Date Neto Dumont MD [address] [address] PCP - General Family Practice 02/17/20 documented as of this encounter
--- OUTSIDE RECORDS SUMMARY | 2025-01-04 19:18 | XMS_ITS | Encounter Summary ---
Author Organization [facility] Address [address] [place] [address] Care Team Providers Care Exhaust Emissions Automotive Technician Name Role Phone Neto Dumont MD Primary Care Provider +1 -[phone] Encounter Details Date Type Department Care Team (Latest Contact Info) Description 09/20/1999 Outpatient Historical [facility] Medicine [place] [address] [address] Reinaldo Yoder, NO ADDRESS ON FILE Acute bronchitis (Primary Dx) Social History Tobacco Use Types Packs/Day Years Used Date Smoking Tobacco: Never Assessed Comments Unknown Sex and Gender Information Value Date Recorded Sex Assigned at Not on file Legal Sex Female 5:14 AM STEREOPLOTTER OPERATOR Gender Identity Not on file Sexual Orientation Not on file documented as of this encounter Plan of Treatment Not on file documented as of this encounter Visit Diagnoses Diagnosis Acute bronchitis- Primary documented in this encounter Care Teams Exhaust Emissions Automotive Technician Relationship Specialty Start Date End Date Neto Dumont MD [address] [address] PCP - General Family Practice 02/17/20 documented as of this encounter
--- OUTSIDE RECORDS SUMMARY | 2025-01-04 19:18 | XMS_ITS | Encounter Summary ---
Author Organization [facility] Address [address] [place] [address] Care Team Providers Care Fastener Sewing Machine Operator Name Role Phone Neto Dumont MD Primary Care Provider +1 -[phone] Encounter Details Date Type Department Care Team (Latest Contact Info) Description 08/06/2002 Outpatient Historical [facility] Medicine [place] [address] [address] Reinaldo Yoder, NO ADDRESS ON FILE MYALGIA AND MYOSITIS NOS (Primary Dx) Social History Tobacco Use Types Packs/Day Years Used Date Smoking Tobacco: Never Assessed Comments Unknown Sex and Gender Information Value Date Recorded Sex Assigned at Not on file Legal Sex Female 5:14 AM TELECOMMUNICATIONS CABLE JOINTER Gender Identity Not on file Sexual Orientation Not on file documented as of this encounter Plan of Treatment Not on file documented as of this encounter Visit Diagnoses Diagnosis Myalgia and myositis, unspecified- Primary Mylagia and myositis, unspecified documented in this encounter Care Teams Fastener Sewing Machine Operator Relationship Specialty Start Date End Date Neto Dumont MD [address] [address] PCP - General Family Practice 02/17/20 documented as of this encounter
--- OUTSIDE RECORDS SUMMARY | 2025-01-04 19:18 | XMS_ITS | Encounter Summary ---
Author Organization [facility] Address [address] [place] [address] Care Team Providers Care Store Hand Name Role Phone Neto Dumont MD Primary Care Provider +1 -[phone] Encounter Details Date Type Department Care Team (Latest Contact Info) Description 12/08/2004 Outpatient Historical [facility] Family Medicine- [employer] [place] [address] Reinaldo Yoder DO NO ADDRESS ON FILE HEADACHE (Primary Dx) Social History Tobacco Use Types Packs/Day Years Used Date Smoking Tobacco: Never Assessed Comments Unknown Sex and Gender Information Value Date Recorded Sex Assigned at Not on file Legal Sex Female 5:14 AM WOUND/OSTOMY NURSE Gender Identity Not on file Sexual Orientation Not on file documented as of this encounter Plan of Treatment Not on file documented as of this encounter Visit Diagnoses Diagnosis Headache(784.0)- Primary Headache documented in this encounter Care Teams Store Hand Relationship Specialty Start Date End Date Neto Dumont MD [address] [facility] [address] [place] [address] PCP - General Family Practice 02/17/20 documented as of this encounter
--- OUTSIDE RECORDS SUMMARY | 2025-01-04 19:18 | XMS_ITS | Encounter Summary ---
Author Organization [facility] Address [address] [place] [address] Care Team Providers Care Director Of Religious Activities Name Role Phone Neto Dumont MD Primary Care Provider [phone] Encounter Details Date Type Department Care Team (Latest Contact Info) Description 05/15/2001 Outpatient Historical [facility] Family Medicine- [address] [place] [address] Reinaldo Yoder DO NO ADDRESS ON FILE DEPRESSIVE DISORDER NEC (Primary Dx) Social History Tobacco Use Types Packs/Day Years Used Date Smoking Tobacco: Never Assessed Comments Unknown Sex and Gender Information Value Date Recorded Sex Assigned at Not on file Legal Sex Female 5:14 AM RESIDENTIAL LIVING ASSISTANT Gender Identity Not on file Sexual Orientation Not on file documented as of this encounter Plan of Treatment Not on file documented as of this encounter Visit Diagnoses Diagnosis Depressive disorder, not elsewhere classified- Primary documented in this encounter Care Teams Director Of Religious Activities Relationship Specialty Start Date End Date Neto Dumont MD [address] [facility] [address] [place] [address] PCP - General Family Practice 02/17/20 documented as of this encounter
--- OUTSIDE RECORDS SUMMARY | 2025-01-04 19:18 | XMS_ITS | Clinical Summary ---
Author Organization [facility] Address [address] [place] [address] Care Team Providers Care Breastfeeding Program Coordinator Name Role Phone Saima Reid DO Primary Care Provider Allergies Active Allergy Reactions Criticality Noted Date Comments Hydroxyzine Pamoate Hives High 03/24/2011 Penicillins Nausea and Vomiting Low 08/27/2020 Pregabalin Unknown 03/05/2024 Sulfa (Sulfonamide Antibiotics) Nausea and Vomiting Low 08/27/2020 Medications insulin aspart protamine-aspar t (NovoLOG MIX 70-30) 100 unit/mL (70-30) pen syringeIndicati ons:Type 2 diabetes mellitus without complication, without long-term current use of insulin ([facility]) Inject 20 Units by subcutaneous injection 2 times daily with meals. 3 mL 2 Active Additional Information Patient taking differently: 10 UnitssubCUT TWO TIMES DAILY WITH MEALS, Reported on 01/04/2025 naproxen sodium (ALEVE) 220 mg Tablet Take 220 mg by mouth. Active gabapentin (NEURONTIN) 100 mg capsule Take 100 mg by mouth 3 times daily. Active atorvastatin (LIPITOR) 10 mg tablet Take 10 mg by mouth daily. Active metoprolol tartrate (LOPRESSOR) 25 mg tablet Take 25 mg by mouth 2 times daily. Active celecoxib (CeleBREX) 50 mg capsule Take 50 mg by mouth. Active amLODIPine (NORVASC) 10 mg tablet Take 10 mg by mouth 2 times daily. Active HYDROcodone-fidelina taminophen (NORCO) 10-325 mg Tablet Take 1 Tablet by mouth every 8 hours as needed for Pain, Moderate. Active POTASSIUM CHLORIDE ORAL Take by mouth daily. Active furosemide (LASIX ORAL) Take by mouth daily. Active Active Problems Problem Noted Date Diagnosed Date Poison sumac 03/05/2024 Blood present in stool 11/07/2022 Encounter for screening for malignant neoplasm of lung in current smoker with 30 pack year history or greater 02/23/2021 Mediastinal adenopathy 02/23/2021 Current smoker 02/23/2021 Type 2 diabetes mellitus wit hout complication, without long-term current use of insulin 02/17/2020 History of illicit drug use 02/17/2020 Cigarette dependence 11/21/2015 Hypertension 03/03/2014 Resolved Problems Problem Noted Date Diagnosed Date Resolved Date Anxiety 03/03/2014 02/17/2020 Cervical spine pain 12/03/2013 02/17/20 20 Cervical radicular pain 12/03/201301/28 Encounters Date Type Department Care Team Description 01/04/2025 3:27 PM CDT - 01/04/2025 6:11 PM CDT Emergency [facility] Emergency Medicine [address] [place] [phone] Harley Renee MD Acute superficial venous thrombosis of left lower extremity (Primary Dx); Elevated d-dimer Discharge Disposition: [facility] 01/04/2025 Travel 12/17/2024 External Device Data [facility] ABSTRACTION Provider, Abstract 11/19/2024 External Device Data [facility] ABSTRACTION Provider, Abstract 11/13/2024 External Device Data [facility] ABSTRACTION Provider, Abstract from Last 3 Months Immunizations Immunization Administration Dates Next Due (SPIKEVAX) (12 YRS UP PRIMAR Y SERIES) COVID-19 VACCINE - MRNA-1273(PF) 100 MCG/0.5 ML IM SUSP 12/30/2020 (TDVAX)(7 YRS UP) TETANUS AN D DIPHTHERIA TOXOIDS, ADSORBED (2 LF OF TETANUS TOXOID AND 2 LF OF DIPHTHERIA TOXOID), 0.5ML (PF), IM 07/15/2003 Family History Medical History Relation Name Comments Diabetes Father Heart Disease Father High Cholesterol Father Hypertension Father Kidney Disease Father Other Father Skin Cancer Father Hypertension Maternal Grandfather Stroke Maternal Grandfather Hypertension Maternal Grandmother Diabetes Mother High Cholesterol Mother Hypertension Mother Other Mother knees x 2 repla [place] Ovarian Cancer Mother Breast Cancer Paternal Aunt x 2 Unknown Paternal Grandfather Unknown Paternal Grandmother Lymphoma Sister 2 Nik Colon Cancer Neg Hx Pancreatic Cancer Neg Hx Uterine Cancer Neg Hx Relation Name Status Comments Brother Zana Alive Daughter Alive Father Maternal Grandfather Maternal Grandmother Mother Alive Paternal Aunt x 2 Alive Paternal Grandfather Paternal Grandmother Sister 1 Kelsi Alive Sister 2 Nik Alive Sister 3 Sobia Alive Son Alive Social History Tobacco Use Types Packs/Day Years Used Date Smoking Tobacco: Every Day Cigarettes 0.3 25 Smokeless Tobacco: Never Tobacco Cessation:Ready to Q uit: Not Asked; Counseling Given: Not Answered Alcohol Use Standard Drinks/Week Comments Not Currently 0 (1 standard drink = 0.6 oz pur e alcohol) Comments No Sex and Gender Information Value Date Recorded Sex Assigned at Not on file 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 Gender Identity Not on file Sexual Orientation Not on file Last Filed Vital Signs Vital Sign Reading [...] Mass Index 24.45 01/04/2025 3:32 PM CDT Plan of Treatment Health Maintenance Due Date Last Done Comments DIABETES ANNUAL FOOT EXAM 1985 DIABETES ANNUAL RETINAL EXAM 1985 HEPATITIS B VACCINES (1 of 3 - 19+ 3-dose series) 1986 HPV/Cotest (21-29) 01/29/1988 CERVICAL CANCER SCREENING 1997 HPV/Cotest (30-65) 1997 PAP SMEAR 1997 DTAP/TDAP/TD VACCINES (1 - Tdap) 07/16/2003 07/15/19 04 COLORECTAL SCREENING 01/29/2012 Colorectal Cancer Screening 01/29/2012 FIT-DNA Q 3 years 01/29/2012 FIT/FOBT Q 1 year 01/29/2012 Flex Sig/CT Colonography Q 5 years 01/29/2012 ZOSTER VACCINE (1 of 2) 2017 DIABETES MICROALBUMIN ANNUAL SCREEN 02/24/2021 02/25/2020 BREAST CANCER SCREENING 02/02/2022 02/02/2021 DIABETES HBA1C Q 6 MONTHS 07/14/20222021, 10/08/2021, 08/10/2020, Additional history exists LDL CHOLESTEROL ANNUAL 01/11/2023 01/11/2022, 2019 COVID-19 Vaccine (3 - 2023-2 5 season) 2024 12/30/2020, 12/02/2020 INFLUENZA VACCINE (#1) 2024 2, 10/11/2021, 08/27/2020, Additional history exists Procedures Procedure Name Priority Date/Time Associated Diagnosis Comments XR ANKLE 3+ VW LEFT Stat 01/04/2025 4 :44 PM CDT SEDIMENTATION RATE Stat 01/04/2025 4: 30 PM CDT C-REACTIVE PROTEIN Stat 01/04/2025 4: 30 PM CDT COMPREHENSIVE METABOLIC PANEL Stat 01/04/2025 4:30 PM CDT D-DIMER Stat 01/04/2025 4:30 PM CDT PTT Stat 01/04/2025 4:30 PM CDT PROTIME-INR Stat 01/04/2025 4:30 PM CDT CBC WITH DIFFERENTIAL Stat 01/04/2025 4:30 PM CDT LIPID PANEL Routine 01/11/2022 9:46 AM CDT Type 2 diabetes mellitus without complication, without long-term current use of insulin ([facility]) HEMOGLOBIN A1C Routine 01/11/2022 9:46 AM CDT Type 2 diabetes mellitus without complication, without long-term current use of insulin ([facility]) MAMMO SCREEN BILAT W OR WO CAD Routine 02/02/2021 11:44 AM CDT Breast cancer screening by mammogram MICROALBUMIN/CREATININ E RATIO, RANDOM UR Routine 02/25/2020 12:40 PM CDT from Last 3 Months or Most Recently Relevant to Health Maintenance Results * XR ANKLE 3+ VW LEFT [...] DIAGNOSTIC IMAGING ORDERABLES F inal Result * (ABNORMAL) CBC WITH DIFFERENTIAL (01/04/2025 4:30 PM CDT) WBC 5.9 4.0 - 10.0 K/uL 01/04/2025 4:[address] [facility] RBC 3.99 3.93 - 5.22 M/uL 01/04/2025 4:[address] [facility] HEMOGLOBIN 11.7 11.2 - 15.7 g/dL 01/04/2025 4:[address] [facility] HEMATOCRIT 35.1 34.1 - 44.9 % 01/04/2025 4:[address] [facility] MCV 88.0 79.4 - 94.8 fL 01/04/2025 4:[address] [facility] MCH 29.3 25.6 - 32.2 pg 01/04/2025 4:[address] [facility] MCHC 33.3 32.2 - 35.5 g/dL 01/04/2025 4:[address] [facility] RDW 12.5 11.0 - 14.5 % 01/04/2025 4:[address] [facility] RDW-STDEV 40.3 36.9 - 56.9 fL 01/04/2025 4:[address] [facility] PLATELETS 228 163 - 337 K/uL 01/04/2025 4:[address] [facility] MPV 9.7(L) 10.0 - 14.8 fL 01/04/2025 4:[address] [facility] NEUTROPHILS 41 34 - 71 % 01/04/2025 4:[address] [facility] LYMPHOCYTES 47 19 - 52 % 01/04/2025 4:[address] [facility] MONOCYTES 8 5 - 13 % 01/04/2025 4:[address] [facility] EOSINOPHILS 3 1 - 6 % 01/04/2025 4:[address] [facility] BASOPHILS 1 0 - 1 % 01/04/2025 4:[address] [facility] IMMATURE GRANULOCYTES 0 % 01/04/2025 4:[address] [facility] NEUTROPHIL ABSOLUTE 2.43 1.56 - 6.13 K/uL 01/04/2025 4:52 PM CDT [facility] LYMPHOCYTE ABSOLUTE 2.76 1.20 - 3.40 K/uL 01/04/2025 4:52 PM CDT [facility] MONOCYTE ABSOLUTE 0.45(H) 0.24 - 0.36 K/uL 01/04/2025 4:52 PM CDT [facility] EOSINOPHIL ABSOLUTE 0.19 0.04 - 0.36 K/uL 01/04/2025 4:52 PM CDT [facility] BASOPHILS ABSOLUTE 0.04 0.01 - 0.08 K/uL 01/04/2025 4:52 PM CDT [facility] IMMATURE GRANULOCYTES ABSOLUTE 0.01 K/uL 01/04/2025 4:52 PM CDT [facility] Blood Venipuncture / Unknown 01/04/2025 4:30 PM CDT 01/04/2025 4:36 PM CDT us Harley Renee MD HEMATOLOGY ORDERABLES Final Res ult Performing Organization Address City/[facility]/ZIP Co de Phone Number [facility] CLIA # [id number] [address] [place] [id number] * PTT (01/04/2025 4:30 PM CDT) Pathologist [facility] PTT 26.2 25.1 - 35.4 seconds 01/04/2025 4:58 PM CDT [facility] Blood Venipuncture / Unknown 01/04/2025 4:30 PM CDT 01/04/2025 4:36 PM CDT us Harley Renee MD HEMATOLOGY ORDERABLES Final Res ult [facility] CLIA # [id number] [address] [place] [address] * SEDIMENTATION RATE (01/04/2025 4:30 PM CDT) Pathologist [facility] ESR (SEDIMENTATION RATE) 10 0 - 30 mm/Hr 01/04/2025 5:01 PM CDT [facility] Blood Venipuncture / Unknown 01/04/2025 4:30 PM CDT 01/04/2025 4:36 PM CDT Narrative [facility] - 01/04/2025 5:01 PM CDT Tube Lot: #[id number] Exp Date: 05/28/2026 QC1 LOT [id number] EXP.06/02/2025 QC2 LOT [id number] EXP.06/02/2025 Harley Renee MD HEMATOLOGY ORDERABLES Final Res [facility] [id number] [address] [place] [address] * PROTIME-INR (01/04/2025 4:30 PM CDT) PROTIME 12.9 12.1 - 14.3 Seconds 01/04/2025 4:58 PM CDT [facility] INR 1.0 0.9 - 1.1 01/04/2025 4:58 PM CDT [facility] Blood Venipuncture / Unknown 01/04/2025 4:30 PM CDT 01/04/2025 4:36 PM CDT Harley Renee MD HEMATOLOGY ORDERABLES Final Res ult [facility] CLIA # [id number] [address] [place] [address] * (ABNORMAL) D-DIMER (01/04/2025 4:30 PM CDT) D-DIMER QUANT 0.57(H) <0.50 ug/mL FEU 01/04/2025 4:59 PM CDT [facility] Blood Venipuncture / Unknown 01/04/2025 4:30 PM CDT 01/04/2025 4:36 PM CDT Narrative [facility] - 01/04/2025 4:59 PM CDT D-Dimer assay [...] ORDERABLES Final Res ult Performing Organization Address [facility] Co de Phone Number [facility] CLIA # [id number] [address] [place] [address] * C-REACTIVE PROTEIN (01/04/2025 4:30 PM CDT) CRP <3.0 <5.0 mg/L 01/04/2025 4:5 9 PM CDT [facility] Blood Venipuncture / Unknown 01/04/2025 4:30 PM CDT 01/04/2025 4:36 PM CDT us Harley Renee MD CHEMISTRY ORDERABLES Final Resu lt Performing Organization Address [facility]/ZIP Co de Phone Number [facility] CLIA # [id number] [address] [place] [address] * (ABNORMAL) COMPREHENSIVE METABOLIC PANEL (01/04/2025 4:30 PM CDT) SODIUM 140 136 - 145 mmol/L 01/04/2025 4:58 PM CDT [facility] POTASSIUM 3.9 3.5 - 5.1 mmol/L 01/04/2025 4:58 PM CDT [facility] CHLORIDE 103 98 - 107 mmol/L 01/04/2025 4:[address] [facility] CO2 25 22 - 29 mmol/L 01/04/2025 4:[address] [facility] CALCIUM 10.8(H) 8.6 - 10.0 mg/dL 01/04/2025 4:[address] [facility] BUN 17 6 - 20 mg/dL 01/04/2025 4:[address] [facility] CREATININE 0.99(H) 0.51 - 0.95 mg/dL 01/04/2025 4:[address] [facility] GLUCOSE 80 74 - 99 mg/dL 01/04/2025 4:[address] [facility] TOTAL PROTEIN 6.9 6.6 - 8.7 g/dL 01/04/2025 4:[address] [facility] ALBUMIN 4.3 3.5 - 5.2 g/dL 01/04/2025 4:[address] [facility] BILIRUBIN TOTAL 0.3 0.0 - 1.2 mg/dL 01/04/2025 4:[address] [facility] ALKALINE PHOSPHATASE 80 35 - 104 U/L 01/04/2025 4:[address] [facility] AST 19 0 - 35 U/L 01/04/2025 4:[address] [facility] ALT 11 0 - 35 U/L 01/04/2025 4:[address] [facility] GFR >60 >=60 mL/min/1.7 3 sq meter 01/04/2025 4:[address] [facility] Comment:eGFR calculated with 2020 CKD-EPI equation. Vegetarian diet, extremely high or low muscle mass, and may affect results. Cystatin C with Glomerular Filtration Rate is a suitable alternative for these patients. ANION GAP 12 5 - 20 mmol/L 01/04/2025 4:[address] [facility] Blood Venipuncture / Unknown 01/04/2025 4:30 PM CDT 01/04/2025 4:36 PM CDT us Harley Renee MD CHEMISTRY ORDERABLES Final Resu lt [facility] # [id number] [address] [place] [address] * (ABNORMAL) HEMOGLOBIN A1C (01/11/2022 9:46 AM CDT) HEMOGLOBIN A1C 7.4(H) <5.7 % of total Hgb [facility] Comment: For someone without known diabetes, a hemoglobin A1c value of 6.5% or greater indicates that they may have diabetes and this should be confirmed with a follow-up test. For someone with known diabetes, a value <7% indicates that their diabetes is well controlled and a value greater than or equal to 7% indicates suboptimal control. A1c targets should be individualized based on duration of diabetes, age, comorbid conditions, and other considerations. Currently, no consensus exists regarding use of hemoglobin A1c for diagnosis of diabetes for children. ESTIMATED AVERAGE GLUCOSE (MG/DL) 166 mg/dL [facility] ESTIMATED AVERAGE GLUCOSE (MMOL/L) 9.2 mmol/L [facility] Comment: Test Performed at: [facility] [address] [address] Nura Gardner D.O., MPH Blood 01/11/2022 9:46 AM CDT 01/12/2022 3:05 AM CDT us Deneen SOMERS CHEMISTRY ORDERABLES Fin al Result [facility] [phone] [email or web address] [facility] [address] [address] [address] * (ABNORMAL) LIPID PANEL (01/11/2022 9:46 AM CDT) CHOLESTEROL 237(H) <200 mg/dL [facility] HDL 54 > OR = 50 mg/dL [facility] TRIGLYCERIDE 118 <150 mg/dL [facility] LDL CALCULATED 159(H) mg/dL (calc) [facility] Comment: Reference range: <100 Desirable range <100 mg/dL for primary prevention; <70 mg/dL for patients with CHD or diabetic patients with > or = 2 CHD risk factors. LDL-C is now calculated using the Etelvina calculation, which is a validated novel method providing better accuracy than the Friedewald equation in the estimation of LDL-C. Anup SS et al. RADHA. 2013;310(19): 4964-3523 (http://education.Datical/faq/GSH119) CHOL/HDL RATIO 4.4 <5.0 (calc) [facility] TOTAL NON-HDL CHOL(LDL+VLDL) 183(H) <130 mg/dL (calc) [facility] Comment: For patients with diabetes plus 1 major ASCVD risk factor, treating to a non-HDL-C goal of <100 mg/dL (LDL-C of <70 mg/dL) is considered a therapeutic option. Test Performed at: [facility] [address] [place] [address] Nura Gardner D.O., MPH Blood 01/11/2022 9:46 AM CDT 01/12/2022 3:05 AM CDT Deneen Nguyễn ORDER BUILDER LOADER CHEMISTRY ORDERABLES Fin al Result [facility] [phone] [facility] [place] [address] * MAMMO SCREEN BILAT W OR WO CAD (02/02/2021 11:44 AM CDT) Anatomical Region Laterality Modality Breast Bilateral Mammography Narrative 02/02/2021 12:48 PM CDT Bilateral Mammogram Reason for Exam: Screening Comparison: No prior exam(s) for comparison. Findings: Bilateral CC and MLO views were obtained. This examination was reviewed with the aid of a computer-aided detection system(CAD) Breast Composition: There are scattered areas of fibroglandular density. Impression: Negative screening mammogram. Recommendation: Routine annual follow-up Overall Assessment: Birads Category 1: Negative us Hans [place] MAMMO ORDERABLES Final Result * MICROALBUMIN/CREATININE RATIO, RANDOM UR (02/25/2020 12:40 PM CDT) MICROALBUMIN, URINE <1.2 No Reference Range mg/dL 02/25/2020 2:23 PM CDT [facility] CREATININE, URINE 38.3 29.0 - 226.0 mg/dL 02/25/2020 2:23 PM CDT [facility] Comment:Reference Range vari es with fluid intake and diet. Urine URINE SPECIMEN OBTAINED BY CLEAN CATCH PROCEDURE / Unknown 02/25/2020 12:40 PM CDT 02/25/2020 1:14 PM CDT Narrative [facility] - 02/25/2020 2:23 PM CDT Condition Microalbumin/Creat ratio Normal Males <17 Normal Females <25 Microalbuminuria Males 17-299 Microalbuminuria Females 25-299 Overt proteinuria >=300 Unable to calculate urine microalbumin/creatinine ratio because urine microalbumin result is outside of reportable range. us Neto Dumotn MD URINE ORDERABLES Final Re sult [facility] CLIA # [id number] [address] [place] [address] [facility] CLIA # [id number] [address] [place] [address] from Last 3 Months or Most Recently Relevant to Health Maintenance [place] [address] [place] [address] [employer]ICA[employer] Care Teams Breastfeeding Program Coordinator Relationship Specialty Start Date End Date Saima Reid DO [address] [place] [address] PCP - General Family Practice 06/06/22
--- OUTSIDE RECORDS SUMMARY | 2025-01-04 19:18 | XMS_ITS | Encounter Summary ---
Author Organization [facility] Address [address] [place] [address] Care Team Providers Care Emblem Fuser Tender Name Role Phone Neto Dumont MD Primary Care Provider [phone] [phone] Encounter Details Date Type Department Care Team (Latest Contact Info) Description 02/07/2006 Outpatient Historical [facility] Medicine [place] [address] [address] Reinaldo Yoder, NO ADDRESS ON FILE Anxiety State, Unspecified (Primary Dx) Social History Tobacco Use Types Packs/Day Years Used Date Smoking Tobacco: Never Assessed Comments Unknown Sex and Gender Information Value Date Recorded Sex Assigned at Not on file 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
--- OUTSIDE RECORDS SUMMARY | 2025-01-04 19:18 | XMS_ITS | Encounter Summary ---
Author Organization [facility] Address [address] [place] [address] Care Team Providers Care Campaign Worker Name Role Phone Neto Dumont MD Primary Care Provider [phone] [phone] Encounter Details Date Type Department Care Team (Latest Contact Info) Description 04/18/2000 Outpatient Historical [facility] Family Medicine- [address] [place] [address] Reinaldo Yoder, NO ADDRESS ON FILE Myalgia and myositis, unspecified (Primary Dx) Social History Tobacco Use Types Packs/Day Years Used Date Smoking Tobacco: Never Assessed Comments Unknown Sex and Gender Information Value Date Recorded Sex Assigned at Not on file 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
--- OUTSIDE RECORDS SUMMARY | 2025-01-04 19:18 | XMS_ITS | Encounter Summary ---
Author Organization [facility] Address [address] [place] [address] Care Team Providers Care Code Machine Operator Name Role Phone Neto Dumont MD Primary Care Provider [phone] Encounter Details Date Type Department Care Team (Latest Contact Info) Description 05/27/2002 Outpatient Historical [facility] Medicine [place] [address] [address] Reinaldo Yoder, NO ADDRESS ON FILE DEPRESSIVE DISORDER NEC (Primary Dx) Social History Tobacco Use Types Packs/Day Years Used Date Smoking Tobacco: Never Assessed Comments Unknown Sex and Gender Information Value Date Recorded Sex Assigned at Not on file 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
--- OUTSIDE RECORDS SUMMARY | 2025-01-04 19:18 | XMS_ITS | Encounter Summary ---
Author Organization [facility] Address [address] 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
--- OUTSIDE RECORDS SUMMARY | 2025-01-04 19:18 | XMS_ITS | Encounter Summary ---
Author Organization [facility] Address [address] [place] [address] Care Team Providers Care Party Plan Selling Distributor Name Role Phone Neto Dumont MD Primary Care Provider +1 -[phone] Encounter Details Date Type Department Care Team (Latest Contact Info) Description 08/10/1998 Outpatient Historical [facility] [place] [address] [address] Reinaldo Yoder, NO ADDRESS ON FILE Acute upper respiratory infections of unspecified site (Primary Dx) Social History Tobacco Use Types Packs/Day Years Used Date Smoking Tobacco: Never Assessed Comments Unknown Sex and Gender Information Value Date Recorded Sex Assigned at Not on file 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
--- OUTSIDE RECORDS SUMMARY | 2025-01-04 19:18 | XMS_ITS | Encounter Summary ---
Author Organization [facility] Address [address] [place] [address] Care Team Providers Care Remnant Sorter Name Role Phone Neto Dumont MD Primary Care Provider +1 -[phone] Encounter Details Date Type Department Care Team (Latest Contact Info) Description 06/29/2001 Outpatient Historical [facility] Medicine [place] [address] [address] Reinaldo Yoder, NO ADDRESS ON FILE Sprain of neck (Primary Dx); MYALGIA AND MYOSITIS NOS Social History Tobacco Use Types Packs/Day Years Used Date Smoking Tobacco: Never Assessed Comments Unknown Sex and Gender Information Value Date Recorded Sex Assigned at Not on file 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
--- OUTSIDE RECORDS SUMMARY | 2025-01-04 19:18 | XMS_ITS | Encounter Summary ---
Author Organization [facility] Address [address] [place] [address] Care Team Providers Care Skein Yarn Drier Name Role Phone Neto Dumont MD Primary Care Provider +1 -[phone] Encounter Details Date Type Department Care Team (Latest Contact Info) Description 03/14/2006 Outpatient Historical [facility] Medicine [place] [address] [address] Reinaldo Yoder, NO ADDRESS ON FILE Acute Gastritis (Primary Dx) Social History Tobacco Use Types Packs/Day Years Used Date Smoking Tobacco: Never Assessed Comments Unknown Sex and Gender Information Value Date Recorded Sex Assigned at Not on file 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
--- OUTSIDE RECORDS SUMMARY | 2025-01-04 19:18 | XMS_ITS | Encounter Summary ---
Author Organization [facility] Address [address] [facility] Attn: [place] [address] Care Team Providers Care Food Service Supervisor Name Role Phone Saima Reid DO Primary Care Provider Encounter Details Date Type Department Care Team (Latest Contact Info) Description 01/04/2025 Travel Social History Tobacco Use Types Packs/Day Years Used Date Smoking Tobacco: Every Day Cigarettes 0.3 25 Smokeless Tobacco: Never Alcohol Use Standard Drinks/Week Comments Not Currently 0 (1 standard drink = 0.6 oz pur e alcohol) Comments No Sex and Gender Information Value Date Recorded Sex Assigned at Not on file Legal Sex Female 2:36 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
--- OUTSIDE RECORDS SUMMARY | 2025-01-04 19:18 | XMS_ITS | Encounter Summary ---
Author Organization [facility] Address [address] [place] [address] Care Team Providers Care Medical Certification Specialist Name Role Phone Neto Dumont MD Primary Care Provider +1 -[phone] Encounter Details Date Type Department Care Team (Latest Contact Info) Description 08/03/2001 Outpatient Historical [facility] Medicine [place] [address] [address] Reinaldo Yoder, NO ADDRESS ON FILE MYALGIA AND MYOSITIS NOS (Primary Dx) Social History Tobacco Use Types Packs/Day Years Used Date Smoking Tobacco: Never Assessed Comments Unknown Sex and Gender Information Value Date Recorded Sex Assigned at Not on file 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
--- OUTSIDE RECORDS SUMMARY | 2025-01-04 19:18 | XMS_ITS | Encounter Summary ---
Author Organization [facility] Address [address] [place] [address] Care Team Providers Care Block Setter Gypsum Name Role Phone Neto Dumont MD Primary Care Provider +1 -[phone] Encounter Details Date Type Department Care Team (Latest Contact Info) Description 02/08/2002 Outpatient Historical [facility] Medicine [place] [address] [address] Reinaldo Yoder, NO ADDRESS ON FILE DEPRESSIVE DISORDER NEC (Primary Dx) Social History Tobacco Use Types Packs/Day Years Used Date Smoking Tobacco: Never Assessed Comments Unknown Sex and Gender Information Value Date Recorded Sex Assigned at Not on file Legal Sex Female 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
--- OUTSIDE RECORDS SUMMARY | 2025-01-04 19:18 | XMS_ITS | Encounter Summary ---
Author Organization [facility] Address [address] [place] [address] Care Team Providers Care Acoustical Material Worker Name Role Phone Neto Dumont MD Primary Care Provider +1 -[phone] Encounter Details Date Type Department Care Team (Latest Contact Info) Description 07/31/1998 Outpatient Historical [facility] Medicine [place] [address] [address] Reinaldo Yoder, DO NO ADDRESS ON FILE Screening for malignant neoplasm of the cervix (Primary Dx); Abdominal pain, unspecified site Social History Tobacco Use Types Packs/Day Years Used Date Smoking Tobacco: Never Assessed Comments Unknown Sex and Gender Information Value Date Recorded Sex Assigned at Not on file Legal Sex Female 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
--- OUTSIDE RECORDS SUMMARY | 2025-01-04 19:18 | XMS_ITS | Encounter Summary ---
Author Organization [facility] Address [address] [facility] [address]: [place] [address] Care Team Providers Care Aircraft Designer Name Role Phone Neto Dumont MD Primary Care Provider +1 -[phone] Encounter Details Date Type Department Care Team (Late st Contact Info) Description 06/27/2001 Outpatient Historical Non-Staff, Physician NO ADDRESS ON FILE Social History Tobacco Use Types Packs/Day Years Used Date Smoking Tobacco: Never Assessed Comments Unknown Sex and Gender Information Value Date Recorded Sex Assigned at Not on file Legal Sex Female 5:14 AM PATIENT SUPPORT REPRESENTATIVE Gender Identity Not on file Sexual Orientation Not on file documented as of this encounter Plan of Treatment Not on file documented as of this encounter Visit Diagnoses Not on filedocumented in this encounter Care Teams Aircraft Designer Relationship Specialty Start Date End Date Neto Dumont MD [address] [facility] [address] [place] [address] PCP - General Family Practice 02/17/20 documented as of this encounter
--- OUTSIDE RECORDS SUMMARY | 2025-01-04 19:18 | XMS_ITS | Encounter Summary ---
Author Organization [facility] Address [address] [place] [address] Care Team Providers Care Head Golf Coach Name Role Phone Neto Dumont MD Primary Care Provider +1 -[phone] Encounter Details Date Type Department Care Team (Latest Contact Info) Description 09/03/2001 Outpatient Historical [facility] Medicine [place] [address] [address] Reinaldo Yoder, NO ADDRESS ON FILE MYALGIA AND MYOSITIS NOS (Primary Dx) Social History Tobacco Use Types Packs/Day Years Used Date Smoking Tobacco: Never Assessed Comments Unknown Sex and Gender Information Value Date Recorded Sex Assigned at Not on file Legal Sex Female 5:14 AM 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
--- OUTSIDE RECORDS SUMMARY | 2025-01-04 19:18 | XMS_ITS | Encounter Summary ---
Author Organization [facility] Address [address] [place] [address] Care Team Providers Care Cigar Roller Name Role Phone Neto Dumnot MD Primary Care Provider +1 -[phone] Encounter Details Date Type Department Care Team (Latest Contact Info) Description 04/12/2002 Outpatient Historical [facility] Medicine [place] [address] [address] Reinaldo Yoder, NO ADDRESS ON FILE DEPRESSIVE DISORDER NEC (Primary Dx); ANXIETY STATE NOS Social History Tobacco Use Types Packs/Day Years Used Date Smoking Tobacco: Never Assessed Comments Unknown Sex and Gender Information Value Date Recorded Sex Assigned at Not on file Legal Sex Female 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
--- OUTSIDE RECORDS SUMMARY | 2025-01-04 19:18 | XMS_ITS | Encounter Summary ---
Author Organization [facility] Address [address] [place] [address] Care Team Providers Care Laborer Landscape Name Role Phone Neto Dumont MD Primary Care Provider +1 -[phone] Encounter Details Date Type Department Care Team (Latest Contact Info) Description 10/02/2001 Outpatient Historical [facility] Oral and Maxillo Surgery[address] [place] [address] Hilton Blanca, PhD NO ADDRESS ON FILE UNSPEC DENTAL CARIES (Primary Dx) Social History Tobacco Use Types Packs/Day Years Used Date Smoking Tobacco: Never Assessed Comments Unknown Sex and Gender Information Value Date Recorded Sex Assigned at Not on file Legal 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
--- OUTSIDE RECORDS SUMMARY | 2025-01-04 19:18 | XMS_ITS | Encounter Summary ---
Author Organization [facility] Address [address] [place] [address] Care Team Providers Care Tabulating Machine Mechanic Name Role Phone Neto Dumont MD Primary Care Provider +1 -[phone] Encounter Details Date Type Department Care Team (Latest Contact Info) Description 10/26/2001 Outpatient Historical [facility] Medicine [place] [address] [address] Reinaldo Yoder DO NO ADDRESS ON FILE LUMBAGO (Primary Dx); Sprain lumbar region; DEPRESSIVE DISORDER NEC Social History Tobacco Use Types Packs/Day Years Used Date Smoking Tobacco: Never Assessed Comments Unknown Sex and Gender Information Value Date Recorded Sex Assigned at Not on file Legal Sex Female 5:14 AM OPERATIONS TRAINER Gender Identity Not on file Sexual Orientation Not on file documented as of this encounter Plan of Treatment Not on file documented as of this encounter Visit Diagnoses Diagnosis Lumbago- Primary Sprain lumbar region Sprain of lumbar region Depressive disorder, not elsewhere classified documented in this encounter Care Teams Tabulating Machine Mechanic Relationship Specialty Start Date End Date Neto Dumont MD [address] [address] PCP - General Family Practice 02/17/20 documented as of this encounter
--- OUTSIDE RECORDS SUMMARY | 2025-01-04 19:18 | XMS_ITS | Encounter Summary ---
Author Organization [facility] Address [address] [place] [address] Care Team Providers Care Toe Former Stitchdowns Name Role Phone Neto Dumont MD Primary Care Provider +1 -[phone] Encounter Details Date Type Department Care Team (Latest Contact Info) Description 04/16/2002 Outpatient Historical [facility] Medicine [place] [address] [address] Reinaldo Yoder DO NO ADDRESS ON FILE Cervicitis (Primary Dx); Abn Pap Smear-Cervix Social History Tobacco Use Types Packs/Day Years Used Date Smoking Tobacco: Never Assessed Comments Unknown Sex and Gender Information Value Date Recorded Sex Assigned at Not on file Legal Sex Female 5:14 AM DINING SERVICE 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
--- OUTSIDE RECORDS SUMMARY | 2025-01-04 19:19 | XMS_ITS | Encounter Summary ---
Author Organization [facility] Address [address] [place] [address] Care Team Providers Care Cut Lace Machine Operator Name Role Phone Neto Dumont MD Primary Care Provider +1 -[phone] Encounter Details Date Type Department Care Team (Late st Contact Info) Description 09/18/2017 Lab Requisition [facility] [place] [address] [place] [address] Hliton Vásquez NP [address] [place] [address] Social History Tobacco Use Types Packs/Day Years Used Date Smoking Tobacco: Every Day Cigarettes 1 10 Smokeless Tobacco: Never Alcohol Use Standard Drinks/Week Comments Yes 0 (1 standard drink = 0.6 oz pur e alcohol) occasionally Comments No Sex and Gender Information Value Date Recorded Sex Assigned at Not on file Legal Sex Female 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 Gender Identity Not on file Sexual Orientation Not on file documented as of this encounter Plan of Treatment Not on file documented as of this encounter Procedures Procedure Name Priority Date/Time Associated Diagnosis Comments CBC WITH DIFFERENTIAL Routine 09/18/2017 9:00 PM CDT TSH Routine 09/18/2017 9:00 PM CDT VITAMIN B12 LEVEL Routine 09/18/2017 9:0 0 PM CDT COMPREHENSIVE METABOLIC PANEL Routine 09/18/2017 9:00 PM CDT documented in this encounter Results * VITAMIN B12 LEVEL (09/18/2017 9:00 PM CDT) VITAMIN B12 402 211 - 946 pg/mL 09/18/2017 11:51 PM [facility] Blood Collection / Unknown 09/18/2017 9:00 PM CDT 09/18/2017 9:38 PM CDT us Hilton Vásquez NP CHEMISTRY ORDERABLES Final Resu lt [facility] CLIA # [id number] [address] [place] [address] * COMPREHENSIVE METABOLIC PANEL (09/18/2017 9:00 PM CDT) Pathologist [facility] SODIUM 141 136 - 145 mmol/L 09/18/2017 11:51 PM [facility] POTASSIUM 4.1 3.5 - 5.1 mmol/L 09/18/2017 11:51 PM [facility] CHLORIDE 101 98 - 107 mmol/L 09/18/2017 11:51 PM [facility] CO2 26 22 - 29 mmol/L 09/18/2017 11:51 PM [facility] CALCIUM 9.5 8.6 - 10.0 mg/dL 09/18/2017 11:51 PM [facility] BUN 14 6 - 20 mg/dL 09/18/2017 11:51 PM [facility] CREATININE 0.66 0.51 - 0.95 mg/dL 09/18/2017 11:51 PM [facility] GLUCOSE 99 74 - 106 mg/dL 09/18/2017 11:51 PM [facility] TOTAL PROTEIN 7.1 6.6 - 8.7 g/dL 09/18/2017 11:51 PM [facility] ALBUMIN 4.3 3.5 - 5.2 g/dL 09/18/2017 11:51 PM [facility] BILIRUBIN TOTAL 0.2 0.0 - 1.2 mg/dL 09/18/2017 11:51 PM [facility] ALKALINE PHOSPHATASE 65 35 - 104 U/L 09/18/2017 11:51 PM [facility] AST 16 10 - 35 U/L 09/18/2017 11:51 PM [facility] ALT 14 10 - 35 U/L 09/18/2017 11:51 PM [facility] GFR >60 >=60 mL/min/1.7 3 sq meter 09/18/2017 11:51 PM [facility] Comment: eGFR has not been validated [...] GFR, >60 >=60 mL/min/1.7 3 sq meter 09/18/2017 11:51 PM [facility] ANION GAP 14 12 - 20 mmol/L 09/18/2017 11:51 PM [facility] Blood Collection / Unknown 09/18/2017 9:00 PM CDT 09/18/2017 9:38 PM CDT us Hilton Vásquez NP CHEMISTRY ORDERABLES [id number] [address] [place] [address] * (ABNORMAL) CBC WITH DIFFERENTIAL (09/18/2017 9:00 PM CDT) WBC 6.8 4.0 - 10.0 K/uL 09/18/2017 11:52 PM [facility] RBC 4.61 3.93 - 5.22 M/uL 09/18/2017 11:52 PM [facility] HEMOGLOBIN 13.1 11.2 - 15.7 g/dL 09/18/2017 11:52 PM [facility] HEMATOCRIT 41.1 34.1 - 44.9 % 09/18/2017 11:52 PM [facility] MCV 89.2 79.4 - 94.8 fL 09/18/2017 11:52 PM [facility] MCH 28.4 25.6 - 32.2 pg 09/18/2017 11:52 PM [facility] MCHC 31.9(L) 32.2 - 35.5 g/dL 09/18/2017 11:52 PM [facility] RDW 13.4 11.0 - 14.5 % 09/18/2017 11:52 PM [facility] RDW-STDEV 43.3 36.9 - 56.9 fL 09/18/2017 11:52 PM [facility] PLATELETS 274 163 - 337 K/uL 09/18/2017 11:52 PM [facility] MPV 10.7 10.0 - 14.8 fL 09/18/2017 11:52 PM [facility] NEUTROPHILS 51 34 - 71 % 09/18/2017 11:52 PM [facility] LYMPHOCYTES 37 19 - 52 % 09/18/2017 11:52 PM [facility] MONOCYTES 8 5 - 13 % 09/18/2017 11:52 PM [facility] EOSINOPHILS 3 1 - 6 % 09/18/2017 11:52 PM [facility] BASOPHILS 0 0 - 1 % 09/18/2017 11:52 PM [facility] IMMATURE GRANULOCYTES 0 % 09/18/2017 11:52 PM [facility] NEUTROPHIL ABSOLUTE 3.48 1.56 - 6.13 K/uL 09/18/2017 11:52 PM [facility] LYMPHOCYTE ABSOLUTE 2.53 1.20 - 3.40 K/uL 09/18/2017 11:52 PM [facility] MONOCYTE ABSOLUTE 0.55(H) 0.24 - 0.36 K/uL 09/18/2017 11:52 PM [facility] EOSINOPHIL ABSOLUTE 0.18 0.04 - 0.36 K/uL 09/18/2017 11:52 PM CDT [facility] BASOPHILS ABSOLUTE 0.02 0.01 - 0.08 K/uL 09/18/2017 11:52 PM CDT [facility] IMMATURE GRANULOCYTES ABSOLUTE 0.01 K/uL 09/18/2017 11:52 PM CDT [facility] Blood Collection / Unknown 09/18/2017 9:00 PM CDT 09/18/2017 9:38 PM CDT Hilton Vásquez TOGGLE PRESS OPERATOR HEMATOLOGY ORDERABLES Final Res ult Performing Organization Address City/[facility]/ZIP Co de Phone Number [facility] CLIA # [id number] [address] [place] [address] * TSH (09/18/2017 9:00 PM CDT) TSH 1.48 0.27 - 4.20 uIU/mL 09/18/2017 11:52 PM CDT [facility] Blood Collection / Unknown 09/18/2017 9:00 PM CDT 09/18/2017 9:38 PM CDT Hilton Vásquez TOGGLE PRESS OPERATOR CHEMISTRY ORDERABLES Final Resu lt Performing Organization Address City/[facility]/ZIP Co de Phone Number [facility] CLIA # [id number] [address] [place] [address] documented in this encounter Visit Diagnoses Not on filedocumented in this encounter Care Teams Cut Lace Machine Operator Relationship Specialty Start Date End Date Neto Dumont MD [address] [phone] PCP - General Family Practice 02/17/20 documented as of this encounter
--- OUTSIDE RECORDS SUMMARY | 2025-01-04 19:19 | XMS_ITS | Clinical Summary ---
Author Organization [facility] Address [address] [place] [address] Care Team Providers Care Accounting Coordinator Name Role Phone Neto Dumont MD Primary Care Provider [phone] Allergies Active Allergy Reactions Criticality Noted Date Comments Hydroxyzine Pamoate Hives High 03/24/2011 Medications aspirin (ECOTRIN EC) 81 mg Tablet, Delayed Release (E.C.) Take 1 Tablet (81 mg) by mouth daily. 0 Active lisinopriL (PRINIVIL) 40 mg tabletIndication s:Essential hypertension Take 1 Tablet (40 mg) by mouth daily. At bedtime 30 Tablet 5 1 Active atenoloL (TENORMIN) 25 mg tabletIndication s:Essential hypertension Take 1 Tablet (25 mg) by mouth daily. In the morning 30 Tablet 5 1 Active cloNIDine HCL (CATAPRES) 0.1 mg tabletIndication s:Essential hypertension Take 1 Tablet (0.1 mg) by mouth 3 times daily as needed for Blood Pressure (Sys >160 Diastolic >100). 30 Tablet 5 1 Active Additional Information Patient taking differently:0.1 mg Oral THREE TIMES DAILY PRN, Blood Pressure, Sys >160 Diastolic >100,Hold per Dr Dumont 08/06/20,, Reported on 08/06/2020 lovastatin (MEVACOR) 20 mg tabletIndication s:Type 2 diabetes mellitus without complication, without long-term current use of insulin (CMS/HCC) Take 1 Tablet (20 mg) by mouth daily with supper. 30 Tablet 5 1 Active prazosin (MINIPRESS) 1 mg capsuleIndicatio ns:Night terrors Take 1 Capsule (1 mg) by mouth daily at bedtime. For nightmares 30 Capsule 5 1 Active metFORMIN (GLUCOPHAGE) 500 mg tabletIndication s:Type 2 diabetes mellitus without complication, without long-term current use of insulin (CMS/HCC) Take 1 Tablet (500 mg) by mouth 2 times daily with meals. 60 Tablet 5 1 Active Active Problems Problem Noted Date Diagnosed Date Type 2 diabetes mellitus wit hout complication, without long-term current use of insulin 02/17/2020 History of illicit drug use 02/17/2020 Cigarette dependence 11/21/2015 Hypertension 03/03/2014 Resolved Problems Problem Noted Date Diagnosed Date Resolved Date Anxiety 03/03/2014 02/17/2020 Cervical spine pain 12/03/2013 02/17/20 20 Cervical radicular pain 12/03/201301/28 Immunizations Immunization Administration Dates Next Due (TDVAX)(7 YRS UP) TETANUS AN D DIPHTHERIA TOXOIDS, ADSORBED (2 LF OF TETANUS TOXOID AND 2 LF OF DIPHTHERIA TOXOID), 0.5ML (PF), IM 07/15/2003 Family History Medical History Relation Name Comments Cancer Father skin cancer Diabetes Father Heart Disease Father Hypertension Father Kidney Disease Father Hypertension Maternal Grandfather Stroke Maternal Grandfather Hypertension Maternal Grandmother Hypertension Mother Other Mother knees x 2 repla [place] Breast Cancer Paternal Aunt x 2 Unknown Paternal Grandfather Unknown Paternal Grandmother Colon Cancer Neg Hx Relation Name Status Comments Father Maternal Grandfather Maternal Grandmother Mother Paternal Aunt x 2 Alive Paternal Grandfather Paternal Grandmother Social History Tobacco Use Types Packs/Day Years Used Date Smoking Tobacco: Every Day Cigarettes 0.5 10 Smokeless Tobacco: Never Tobacco Cessation:Ready to Q uit: No; Counseling Given: Yes Alcohol Use Standard Drinks/Week Comments Yes 0 (1 standard drink = 0.6 oz pur e alcohol) occasionally Comments No Sex and Gender Information Value Date Recorded Sex Assigned at Not on file Legal Sex Female 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 SAP 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 Gender Identity Not on file Sexual Orientation Not on file Last Filed Vital Signs Vital Sign Reading Time Taken Comments Blood Pressure 132/89 08/13/2020 12:59 PM CDT Pulse 70 08/13/2020 12:59 PM CDT Temperature 36.4 C (97.6 F) 08/13/2020 12:59 PM CDT Respiratory Rate 18 08/13/2020 12:59 PM CDT Oxygen Saturation 95% 08/13/2020 12:59 PM CDT Inhaled Oxygen Concentration - - Weight 76.5 kg (168 lb 9.6 oz) 08/13/2020 12:59 PM CDT Height 175.3 cm (5' 9 ) 08/13/2020 12:59 PM CDT Body Mass Index 24.9 08/13/2020 12:59 PM CDT Plan of Treatment Health Maintenance Due Date Last Done Comments HEPATITIS B VACCINES (1 of 3 - 19+ 3-dose series) 1986 HPV/Cotest (21-29) 01/29/1988 HPV/Cotest (30-65) 1997 CERVICAL CANCER SCREENING 07/31/2001 PAP SMEAR 07/31/2001 07/31/1998 DTAP/TDAP/TD VACCINES (1 - Tdap) 07/16/2003 07/15/19 04 COLORECTAL SCREENING 01/29/2012 Colorectal Cancer Screening 01/29/2012 FIT-DNA Q 3 years 01/29/2012 FIT/FOBT Q 1 year 01/29/2012 04/18/2001 Flex Sig/CT Colonography Q 5 years 01/29/2012 ZOSTER VACCINE (1 of 2) 2017 BREAST CANCER SCREENING 02/02/2022 02/02/2021 INFLUENZA VACCINE (#1) 2024 02/17/2020, 2019 Care Teams Accounting Coordinator Relationship Specialty Start Date End Date Neto Dumont MD [address] [id number] PCP - General Family Practice 02/17/20
--- OUTSIDE RECORDS SUMMARY | 2025-01-04 19:19 | XMS_ITS | Encounter Summary ---
Author Organization [facility] Address [address] [place] [address] Care Team Providers Care Cooling Machine Operator Name Role Phone Neto Dumont MD Primary Care Provider [phone] Encounter Details Date Type Department Care Team (Late st Contact Info) Description 07/30/2018 Lab Requisition [facility] [place] [address] [place] [address] Reinaldo Yoder, DO NO ADDRESS ON FILE Social History Tobacco Use Types Packs/Day Years Used Date Smoking Tobacco: Every Day Cigarettes 1 10 Smokeless Tobacco: Never Alcohol Use Standard Drinks/Week Comments Yes 0 (1 standard drink = 0.6 oz pur e alcohol) occasionally Comments No Sex and Gender Information Value Date Recorded Sex Assigned at Not on file Legal Sex Female 5:14 AM LIQUID SUGAR MELTER Gender Identity Not on file Sexual Orientation Not on file documented as of this encounter Plan of Treatment Not on file documented as of this encounter Procedures Procedure Name Priority Date/Time Associated Diagnosis Comments HEMOGLOBIN A1C Routine 07/30/2018 8:50 PM LIQUID SUGAR MELTER documented in this encounter Results * (ABNORMAL) HEMOGLOBIN A1C (07/30/2018 8:50 PM LIQUID SUGAR MELTER) HEMOGLOBIN A1C 6.5(H) 4.8 - 5.9 % 07/31/2018 1:58 AM LIQUID SUGAR MELTER [facility] EST. AVG GLUCOSE, A1C 140 mg/dL 07/31/2018 1:58 AM LIQUID SUGAR MELTER [facility] Blood Collection / Unknown 07/30/2018 8:50 PM LIQUID SUGAR MELTER 07/31/2018 1:06 AM LIQUID SUGAR MELTER Narrative [facility] - 07/31/2018 1:58 AM LIQUID SUGAR MELTER HGB A1C INTERPRETATION NORMAL: <5.7% PRE-DIABETES: 5.7 - 6.4% DIABETES: 6.5% OR GREATER us Reinaldo Yoder DO CHEMISTRY ORDERABLES Final Resu lt [facility] CLIA # [id number] [address] [address] documented in this encounter Visit Diagnoses Not on filedocumented in this encounter Care Teams Cooling Machine Operator Relationship Specialty Start Date End Date Neto Dumont MD [address] [phone] PCP - General Family Practice 02/17/20 documented as of this encounter
--- NOTE | 2025-01-04 19:36 | W.ED.EXTPRO ---
Documented by User: SENG Villafuerte 01/04/25 20:29 HPI - Extremity Problem General: Chief complaint: Extremity Problem,Nontraumatic Stated complaint: Possible blot clot in Lt leg Time Seen by Provider: 01/04/25 19:00 Source: patient Mode of arrival: ambulatory Limitations: no limitations History of Present Illness: Patient is a 59-year-old female who presents the emergency department complaining of left lower extremity pain and swelling for the past few days. Initially was seen at clinic, bedside ultrasound interpretation had concern for clot, and she was sent to the ED for rule out. Denies history of blood clots, states that her legs do swell intermittently but has never been unilateral. No chest pain or shortness of breath. No use of blood thinners at this time. Denies any trauma or calf tenderness or swelling, she states most of her pain is to her left distal ann/ankle region. No injury reported. MD Complaint: extremity pain and extremity swelling Onset (ago): day(s) Pain Consistency: constant Location: left and lower extremity Associated symptoms: Deny chest pain, fever(s) or rash Related Data Previous Rx's ?Medication ?Instructions ?Recorded pen needle, diabetic 32 gauge x #100 ea 04/29/24 (TechLITE Pen Needle) insulin regular human 100 unit/mL 15 unit (0.15 mL) SUBCUT TID PRN 05/02/24 (3 mL) subcutaneous pen sliding scale for elevated glucose #15 mL amlodipine 5 mg tablet 5 mg PO BID #60 tabs 07/02/24 furosemide 20 mg tablet (Lasix) 20 mg PO DAILY #90 tabs 07/09/24 potassium chloride 10 mEq 10 meq PO DAILY #90 tabs 07/09/24 tablet,extended release gabapentin 400 mg capsule 400 mg PO TID #90 caps 07/31/24 atorvastatin 20 mg tablet 20 mg PO DAILY #30 tabs 08/15/24 blood sugar diagnostic (True #100 ea 09/18/24 Metrix Glucose Test Strip) blood-glucose meter (True Metrix #1 ea 09/18/24 Air Glucose Meter kit) lancets (Accu-Chek Softclix #200 ea 09/19/24 Lancets) metoprolol tartrate 50 mg tablet 50 mg PO BID #60 tabs 11/07/24 celecoxib 200 mg capsule (Celebrex) 200 mg PO BID #60 caps 11/27/24 hydrocodone 10 mg-acetaminophen 1 tab PO Q8H PRN pain 30 days #90 01/01/25 325 mg tablet tabs penicillin V potassium 500 mg 500 mg PO BID chronic dental 01/01/25 tablet infection #40 tabs Allergies Allergy/AdvReac Type Severity Reaction Status Date / Time pregabalin Allergy ADR-Vomitin Verified 01/04/25 19:09 g Sulfa (Sulfonamide Allergy ALGY-Rash Verified 01/04/25 19:09 Antibiotics) Review of Systems General: Reports: 10 or more systems reviewed and unremarkable except in HPI and below Const: Denies: fever(s) or chills Card: Denies: chest pain Resp: Denies: dyspnea or productive cough GI: Denies: abdominal pain, nausea, vomiting or diarrhea : Denies: flank pain Musc: Reports: extremity pain and extremity swelling; Denies: neck pain, back pain, joint pain, joint swelling, joint redness, joint warmth, limited range of motion or muscle weakness Skin/Breast: Denies: rash Neuro: Denies: headache(s), numbness in extremities or weakness in extremities PFSH ED PFSH: Medical History Essential hypertension Diabetes mellitus Social History Smoking and tobacco/nicotine status: current every day tobacco/nicotine user Physical Exam Const: COMMON NORMALS: no acute distress, patient oriented x3, no limitations, healthy appearing, alert and well nourished HENMT: COMMON NORMALS: normocephalic and atraumatic HEAD & SCALP: normocephalic and atraumatic Neck/C-Spine: COMMON NORMALS: full ROM, supple and no meningeal signs Resp: COMMON NORMALS: normal respiratory effort, No use of accessory muscles and clear to auscultation bilaterally AUSCULTATION: clear to auscultation bilaterally Cardio: COMMON NORMALS: regular rate and regular rhythm RATE: regular rate RHYTHM: regular rhythm Extremity: COMMON NORMALS: full ROM, capillary refill normal, no joint enlargement and no clubbing, cyanosis or edema NARRATIVE EXTREMITY EXAM: There is swelling to the left lower extremity, 2+. DP/PT pulses palpable. Tenderness to palpation to the left anterolateral ann, distal. No calf tenderness or popliteal space tenderness or palpable cord. Neuro: COMMON NORMALS: patient oriented x3, moves all extremities, no focal motor deficits and no sensory deficits noted SENSORIUM/ORIENTATION: Yes alert MENINGEAL SIGNS: Yes no meningeal signs Skin: COMMON NORMALS: no rashes or lesions noted GENERAL SKIN EXAM: no rashes or lesions noted Course Vital Signs: Vital signs: Vital Signs Temperature 98.4 F 01/04/25 19:03 Pulse Rate 60 01/04/25 20:32 Respiratory Rate 16 01/04/25 20:32 Blood Pressure 134/85 01/04/25 20:32 Pulse Oximetry 96 01/04/25 20:32 Oxygen Delivery Me thod Room Air 01/04/25 19:03 MDM - Extremity (Nontraumatic) Medical Decision Making Exam showing swelling to left lower extremity, mild. Also multiple varicosities in the left lower extremity. Vitals are stable, no chest pain or shortness of breath or other symptoms were noted. Ultrasound negative for DVT, likely superficial thrombophlebitis and she is encouraged to treat this conservatively in general return precautions are given. Lab Data Radiology Impressions Venous Duplex 01/04/25 19:11 IMPRESSION: No evidence of deep vein thrombosis. No definite abnormality at area of concern. All radiology interpretation(s) finalized by discharge Discharge Plan Discharge Patient Disposition: Home Clinical Impression: Superficial thrombophlebitis Qualifiers: Superficial thrombophlebitis-Involved body area: lower extremity Laterality: left Qualified Code(s): I80.02 - Phlebitis and thrombophlebitis of superficial vessels of left lower extremity Condition: Stable Prescriptions: No Action furosemide [Lasix] 20 mg tablet 20 mg PO DAILY Qty: 90 1RF potassium chloride 10 mEq tablet extended release 10 meq PO DAILY Qty: 90 3RF hydrocodone-acetaminophen 10-325 mg tablet 1 tab PO Q8H PRN (Reason: pain) 30 Days Qty: 90 0RF penicillin V potassium 500 mg tablet 500 mg PO BID Qty: 40 1RF (DME) pen needle, diabetic [TechLITE Pen Needle] 32 gauge x 5/32 needle See Rx Instructions .ROUTE .COMPLEX Qty: 100 6RF Dose Instruction: USE DIRECTED Rx Instructions: USE DIRECTED insulin regular human 100 unit/mL (3 mL) insulin pen 15 unit SUBCUT TID PRN (Reason: sliding scale for elevated glucose) Qty: 15 4RF amlodipine 5 mg tablet 5 mg PO BID Qty: 60 5RF gabapentin 400 mg capsule 400 mg PO TID Qty: 90 3RF atorvastatin 20 mg tablet 20 mg PO DAILY Qty: 30 5RF (DME) True Metrix Glucose Test Strip Strip See Rx Instructions .Route Qty: 100 0RF Rx Instructions: As directed (DME) blood-glucose meter [True Metrix Air Glucose Meter] Kit See Rx Instructions .Route Qty: 1 0RF Rx Instructions: As directed (DME) lancets [Accu-Chek Softclix Lancets] Misc See Rx Instructions .Route Qty: 200 0RF Rx Instructions: As directed metoprolol tartrate 50 mg tablet 50 mg PO BID Qty: 60 5RF celecoxib [Celebrex] 200 mg capsule 200 mg PO BID Qty: 60 1RF Discharge Orders: Discharge ED (Routine); Ordered 01/04/25 Ordered By: Jonathan Silverio Referrals: Jo-Ann Gant MD [Primary Care Provider, [facility]] Patient Instructions: Patient Portal & Raul Instructions Activity Restrictions/Additional Instructions: SVT discharge plan These instructions are for a person diagnosed with superficial thrombophlebitis (SVT), which means a clot in a vein close to the skin. An ultrasound today did not show a deep vein clot (deep vein thrombosis, or DVT). What to expect - SVT often causes a firm, tender, red ?cord? along a superficial vein. Pain and redness usually improve over 1?2 weeks, with the cord softening more slowly over several weeks. - Even with a normal ultrasound today, a small number of people can develop a new clot in a deep vein or lung after SVT. Monitoring symptoms and, in some cases, using a short course of preventive anticoagulation lowers that risk. Home care and symptom relief - Activity: Walk regularly as tolerated. Avoid prolonged sitting or standing. Elevate the leg when resting. - Compression: If not contraindicated, use knee?high compression stockings (15?20 mm Hg or per clinician advice) during the day to reduce discomfort and swelling. Remove at night. Evidence for preventing clots is limited, but many patients find symptom relief. - Pain control: - Consider a short course of an oral NSAID (e.g., ibuprofen or naproxen) if safe for the stomach, kidneys, and heart; this can reduce pain and may reduce local extension/recurrence of SVT, though it has not clearly lowered risk of DVT/PE. - Apply warm compresses to the tender area 10?15 minutes, 3?4 times daily. - Avoid massaging the affected vein. Anticoagulation: when it is recommended - Preventive-dose fondaparinux has the best evidence to reduce blood clots spreading or recurring after SVT: - Fondaparinux 2.5 mg injected under the skin once daily for 45 days reduced symptomatic VTE, SVT extension, and recurrence vs placebo, without more major bleeding. - Alternatives: - Some clinicians consider low?molecular?weight heparin (LMWH) for 4?6 weeks; LMWH lowers SVT extension/recurrence but has not clearly reduced symptomatic VTE in trials. - Rivaroxaban 10 mg daily showed similar outcomes to fondaparinux in one trial of higher?risk patients but needs more study before routine use. - Full?dose anticoagulation: - If the clot involves the main saphenous vein within about 3 cm of the groin (saphenofemoral junction), expert [place] vascular guidelines from the Society for Vascular Surgery, [place] Venous Forum, and [place] [employer] Lymph[employer] recommend treating like a DVT with full?dose anticoagulation for at least 6 weeks. - Your emergency team has documented no DVT today. Whether to start preventive fondaparinux or use symptomatic care alone depends on clot location/length and individual bleeding/clotting risks. If an anticoagulant is prescribed, take it exactly as directed and report any bleeding (see below). Medicines safety - Do not combine NSAIDs with anticoagulants unless specifically instructed. - Avoid NSAIDs if there is a history of stomach ulcers/bleeding, kidney disease, uncontrolled hypertension, heart failure, or if , unless cleared by a clinician. - If on fondaparinux or LMWH, avoid new over?the?counter NSAIDs and high?dose aspirin unless told to take them. When to seek urgent care (call emergency services or return to the ED) - New or worsening leg swelling, especially if the whole calf or thigh becomes swollen or painful. - Sudden chest pain, shortness of breath, coughing up blood, lightheadedness, or fainting (possible pulmonary embolism). - Worsening redness with fever, pus, or rapidly spreading warmth (possible infection). - Bleeding that will not stop, black/tarry stools, vomiting blood, severe headache, or sudden weakness/numbness (if on anticoagulation). Follow?up - Timing: Arrange follow?up with primary care or vascular/hematology clinic within 7?10 days to reassess symptoms, review risk factors, and determine need for ongoing therapy. Earlier follow?up (3?5 days) is reasonable if pain is severe or if starting an anticoagulant. - Re?imaging: If symptoms are worsening, if the clot is close to the groin or behind the knee, or if only NSAIDs are used for a short, distal segment, a repeat duplex ultrasound may be recommended to ensure no extension into the deep system. - Vein care after recovery: If there is significant saphenous vein reflux, the Society for Vascular Surgery/[place] Ven[employer] Forum/[place] Vein and Lymph[employer] Society suggest considering vein ablation once inflammation resolves to reduce future events and symptoms. Prevention and risk factor review - Stay active, maintain a healthy weight, and avoid long periods of immobility. - During long travel, walk periodically and do calf exercises. - Discuss hormone therapy, smoking, prior clots, varicose veins, recent surgery/trauma, or cancer history at follow?up, as these can affect recurrence risk and management plans. Contact information - For questions or worsening symptoms, contact the discharging team or return to the emergency department as instructed above. Summary of the evidence supporting this plan - A 3,000?patient randomized trial showed fondaparinux 2.5 mg daily for 45 days reduced symptomatic VTE and SVT progression/recurrence vs placebo with no increase in major bleeding; LMWH and NSAIDs reduce local SVT extension/recurrence but have not clearly reduced symptomatic VTE; rivaroxaban requires further evaluation. - The Society for Vascular Surgery/[place] Ven[employer] Forum/[place] Vein and Lymph[employer] Society recommend full?dose anticoagulation when SVT is within 3 cm of the saphenofemoral junction, caution against relying on NSAIDs/LMWH to prevent VTE, and advise ultrasound surveillance if NSAIDs are used for short distal SVT. Print Language: [place]an Coding Level of Care Code ED [employer] for [employer] Fwd Documented by User: Kieran Chauhan Milind, DO 01/05/25 03:00 HPI - Extremity Problem General: Chief complaint: Extremity Problem,Nontraumatic Stated complaint: Possible blot clot in Lt leg Time Seen by Provider: 01/04/25 19:00 Related Data Previous Rx's ?Medication ?Instructions ?Recorded pen needle, diabetic 32 gauge x #100 ea 04/29/2432 (TechLITE Pen Needle) insulin regular human 100 unit/mL 15 unit (0.15 mL) SUBCUT TID PRN 05/02/24 (3 mL) subcutaneous pen sliding scale for elevated glucose #15 mL amlodipine 5 mg tablet 5 mg PO BID #60 tabs 07/02/24 furosemide 20 mg tablet (Lasix) 20 mg PO DAILY #90 tabs 07/09/24 potassium chloride 10 mEq 10 meq PO DAILY #90 tabs 07/09/24 tablet,extended release gabapentin 400 mg capsule 400 mg PO TID #90 caps 07/31/24 atorvastatin 20 mg tablet 20 mg PO DAILY #30 tabs 08/15/24 blood sugar diagnostic (True #100 ea 09/18/24 Metrix Glucose Test Strip) blood-glucose meter (True Metrix #1 ea 09/18/24 Air Glucose Meter kit) lancets (Accu-Chek Softclix #200 ea 09/19/24 Lancets) metoprolol tartrate 50 mg tablet 50 mg PO BID #60 tabs 11/07/24 celecoxib 200 mg capsule (Celebrex) 200 mg PO BID #60 caps 11/27/24 hydrocodone 10 mg-acetaminophen 1 tab PO Q8H PRN pain 30 days #90 01/01/25 325 mg tablet tabs penicillin V potassium 500 mg 500 mg PO BID chronic dental 01/01/25 tablet infection #40 tabs Allergies Allergy/AdvReac Type Severity Reaction Status Date / Time pregabalin Allergy ADR-Vomitin Verified 01/04/25 19:09 g Sulfa (Sulfonamide Allergy ALGY-Rash Verified 01/04/25 19:09 Antibiotics) PFSH ED PFSH: Medical History Essential hypertension Diabetes mellitus Social History Smoking and tobacco/nicotine status: current every day tobacco/nicotine user Course Vital Signs: Vital signs: Vital Signs Temperature 98.4 F 01/04/25 19:03 Pulse Rate 60 01/04/25 20:32 Respiratory Rate 16 01/04/25 20:32 Blood Pressure 134/85 01/04/25 20:32 Pulse Oximetry 96 01/04/25 20:32 Oxygen Delivery Me thod Room Air 01/04/25 19:03 MDM - Extremity (Nontraumatic) Medical Decision Making Exam showing swelling to left lower extremity, mild. Also multiple varicosities in the left lower extremity. Vitals are stable, no chest pain or shortness of breath or other symptoms were noted. Ultrasound negative for DVT, likely superficial thrombophlebitis and she is encouraged to treat this conservatively in general return precautions are given. This patient was originally seen by Mr. Nusrat PA-C. I agree with his history, evaluation, and management. Lab Data Radiology Impressions Venous Duplex 01/04/25 19:11 IMPRESSION: No evidence of deep vein thrombosis. No definite abnormality at area of concern. Discharge Plan Discharge Patient Disposition: Home Clinical Impression: Superficial thrombophlebitis Qualifiers: Superficial thrombophlebitis-Involved body area: lower extremity Laterality: left Qualified Code(s): I80.02 - Phlebitis and thrombophlebitis of superficial vessels of left lower extremity Condition: Stable Prescriptions: No Action furosemide [Lasix] 20 mg tablet 20 mg PO DAILY Qty: 90 1RF potassium chloride 10 mEq tablet extended release 10 meq PO DAILY Qty: 90 3RF hydrocodone-acetaminophen 10-325 mg tablet 1 tab PO Q8H PRN (Reason: pain) 30 Days Qty: 90 0RF penicillin V potassium 500 mg tablet 500 mg PO BID Qty: 40 1RF (DME) pen needle, diabetic [TechLITE Pen Needle] 32 gauge x 5/32 needle See Rx Instructions .ROUTE .COMPLEX Qty: 100 6RF Dose Instruction: USE DIRECTED Rx Instructions: USE DIRECTED insulin regular human 100 unit/mL (3 mL) insulin pen 15 unit SUBCUT TID PRN (Reason: sliding scale for elevated glucose) Qty: 15 4RF amlodipine 5 mg tablet 5 mg PO BID Qty: 60 5RF gabapentin 400 mg capsule 400 mg PO TID Qty: 90 3RF atorvastatin 20 mg tablet 20 mg PO DAILY Qty: 30 5RF (DME) True Metrix Glucose Test Strip Strip See Rx Instructions .Route Qty: 100 0RF Rx Instructions: As directed (DME) blood-glucose meter [True Metrix Air Glucose Meter] Kit See Rx Instructions .Route Qty: 1 0RF Rx Instructions: As directed (DME) lancets [Accu-Chek Softclix Lancets] Misc See Rx Instructions .Route Qty: 200 0RF Rx Instructions: As directed metoprolol tartrate 50 mg tablet 50 mg PO BID Qty: 60 5RF celecoxib [Celebrex] 200 mg capsule 200 mg PO BID Qty: 60 1RF Discharge Orders: Discharge ED (Routine); Ordered 01/04/25 Ordered By: Jonathan Silverio Referrals: Jo-Ann Gant MD [Primary Care Provider, [facility]] Patient Instructions: Patient Portal & Raul Instructions Activity Restrictions/Additional Instructions: SVT discharge plan These instructions are for a person diagnosed with superficial thrombophlebitis (SVT), which means a clot in a vein close to the skin. An ultrasound today did not show a deep vein clot (deep vein thrombosis, or DVT). What to expect - SVT often causes a firm, tender, red ?cord? along a superficial vein. Pain and redness usually improve over 1?2 weeks, with the cord softening more slowly over several weeks. - Even with a normal ultrasound today, a small number of people can develop a new clot in a deep vein or lung after SVT. Monitoring symptoms and, in some cases, using a short course of preventive anticoagulation lowers that risk. Home care and symptom relief - Activity: Walk regularly as tolerated. Avoid prolonged sitting or standing. Elevate the leg when resting. - Compression: If not contraindicated, use knee?high compression stockings (15?20 mm Hg or per clinician advice) during the day to reduce discomfort and swelling. Remove at night. Evidence for preventing clots is limited, but many patients find symptom relief. - Pain control: - Consider a short course of an oral NSAID (e.g., ibuprofen or naproxen) if safe for the stomach, kidneys, and heart; this can reduce pain and may reduce local extension/recurrence of SVT, though it has not clearly lowered risk of DVT/PE. - Apply warm compresses to the tender area 10?15 minutes, 3?4 times daily. - Avoid massaging the affected vein. Anticoagulation: when it is recommended - Preventive-dose fondaparinux has the best evidence to reduce blood clots spreading or recurring after SVT: - Fondaparinux 2.5 mg injected under the skin once daily for 45 days reduced symptomatic VTE, SVT extension, and recurrence vs placebo, without more major bleeding. - Alternatives: - Some clinicians consider low?molecular?weight heparin (LMWH) for 4?6 weeks; LMWH lowers SVT extension/recurrence but has not clearly reduced symptomatic VTE in trials. - Rivaroxaban 10 mg daily showed similar outcomes to fondaparinux in one trial of higher?risk patients but needs more study before routine use. - Full?dose anticoagulation: - If the clot involves the main saphenous vein within about 3 cm of the groin (saphenofemoral junction), expert [place] vascular guidelines from the Society for Vascular Surgery, [place] Ven[employer] Forum, and [place] [employer] and Lymph[employer] recommend treating like a DVT with full?dose anticoagulation for at least 6 weeks. - Your emergency team has documented no DVT today. Whether to start preventive fondaparinux or use symptomatic care alone depends on clot location/length and individual bleeding/clotting risks. If an anticoagulant is prescribed, take it exactly as directed and report any bleeding (see below). Medicines safety - Do not combine NSAIDs with anticoagulants unless specifically instructed. - Avoid NSAIDs if there is a history of stomach ulcers/bleeding, kidney disease, uncontrolled hypertension, heart failure, or if , unless cleared by a clinician. - If on fondaparinux or LMWH, avoid new over?the?counter NSAIDs and high?dose aspirin unless told to take them. When to seek urgent care (call emergency services or return to the ED) - New or worsening leg swelling, especially if the whole calf or thigh becomes swollen or painful. - Sudden chest pain, shortness of breath, coughing up blood, lightheadedness, or fainting (possible pulmonary embolism). - Worsening redness with fever, pus, or rapidly spreading warmth (possible infection). - Bleeding that will not stop, black/tarry stools, vomiting blood, severe headache, or sudden weakness/numbness (if on anticoagulation). Follow?up - Timing: Arrange follow?up with primary care or vascular/hematology clinic within 7?10 days to reassess symptoms, review risk factors, and determine need for ongoing therapy. Earlier follow?up (3?5 days) is reasonable if pain is severe or if starting an anticoagulant. - Re?imaging: If symptoms are worsening, if the clot is close to the groin or behind the knee, or if only NSAIDs are used for a short, distal segment, a repeat duplex ultrasound may be recommended to ensure no extension into the deep system. - Vein care after recovery: If there is significant saphenous vein reflux, the Society for Vascular Surgery/[place] Venous Forum/[place] Vein and Lymph[employer] Society suggest considering vein ablation once inflammation resolves to reduce future events and symptoms. Prevention and risk factor review - Stay active, maintain a healthy weight, and avoid long periods of immobility. - During long travel, walk periodically and do calf exercises. - Discuss hormone therapy, smoking, prior clots, varicose veins, recent surgery/trauma, or cancer history at follow?up, as these can affect recurrence risk and management plans. Contact information - For questions or worsening symptoms, contact the discharging team or return to the emergency department as instructed above. Summary of the evidence supporting this plan - A 3,000?patient randomized trial showed fondaparinux 2.5 mg daily for 45 days reduced symptomatic VTE and SVT progression/recurrence vs placebo with no increase in major bleeding; LMWH and NSAIDs reduce local SVT extension/recurrence but have not clearly reduced symptomatic VTE; rivaroxaban requires further evaluation. - The Society for Vascular Surgery/[place] Ven[employer] Forum/[place] Vein and Lymphatic Society recommend full?dose anticoagulation when SVT is within 3 cm of the saphenofemoral junction, caution against relying on NSAIDs/LMWH to prevent VTE, and advise ultrasound surveillance if NSAIDs are used for short distal SVT. 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
[2025-01-04 20:19] VITALS: BP 134/85; PULSE 65; RESP 18; O2SAT 97
[2025-01-04 20:32] VITALS: BP 134/85; PULSE 60; RESP 16; O2SAT 96
== END 2025-01-04 20:33 | disposition home or self-care (01) ==
PROVIDERS: Emergency Provider Physician Assistant; PCP Family Medicine
DX: I80.02 Phlebitis and thrombophlebitis of superficial vessels of left lower extremity (principal); Z79.4 Long term (current) use of insulin; E11.9 Type 2 diabetes mellitus without complications; I10 Essential (primary) hypertension; Z72.0 Tobacco use
CPT/HCPCS: 93971; 99284

== ENCOUNTER → 2025-01-30 14:06 | Outpatient (BNVA) | payer MEDICAID, SELFPAY | PROVIDERS: PCP Family Medicine; Visit Provider Orthopaedic Surgery | DX: M48.061 Spinal stenosis, lumbar region without neurogenic claudication (principal); G89.29 Other chronic pain | CPT/HCPCS: 72110 ==

== ENCOUNTER 2025-02-17 12:49 | Outpatient (CLI) | payer MEDICAID, SELFPAY ==
--- NOTE | 2025-02-17 13:00 | MR_ITS ---
WS: [id number] MRI LUMBAR SPINE NONCONTRAST HISTORY: Back pain COMPARISON: None available. TECHNIQUE: Sagittal and axial multisequence imaging is submitted. Mild increase in thoracic kyphosis. Mild increase in the lumbar lordosis. Posterior lumbar alignment is normal. Disc spaces and vertebral body heights are well-preserved. Conus terminates normally at L1. L1-L2: Bilateral facet joint arthritis. Mild ligamentum flavum hypertrophy. No stenosis. L2-L3: Bilateral mild facet arthritis. No significant stenosis. L3-L4: Mild bilateral facet joint arthritis, LEFT greater than RIGHT. Slight encroachment upon the posterior lateral thecal sac by facet disease. Mild bilateral foraminal stenosis. L4-L5: Mild annular disc bulge with encroachment upon the traversing L5 nerve roots. Mild ligamentum flavum and facet arthritis. Mild central, subarticular recess and foraminal stenosis. L5-S1: Mild annular disc bulge, slightly asymmetric to the RIGHT. Disc contacts the RIGHT S1 nerve root. Mild bilateral facet arthritis. No foraminal stenosis. Paravertebral soft tissues are negative. Liver is enlarged. Liver measures 19 cm in length. MR/MR lumbar spine wo con* [id number] IMPRESSION: 1. No high-grade central or foraminal stenosis. 2. Asymmetric disc bulging at L5-S1 contacting the RIGHT S1 nerve root. 3. Bilateral facet joint arthropathy throughout the lumbar spine. 4. Mild bilateral foraminal stenosis at L3-4. 5. Mild central, subarticular recess and foraminal stenosis at L4-5.
== END 2025-02-17 12:50 | disposition home or self-care (01) ==
LOC: RAD 12:50
PROVIDERS: PCP Family Medicine; Visit Provider Orthopaedic Surgery
DX: M48.061 Spinal stenosis, lumbar region without neurogenic claudication (principal); M40.204 Unspecified kyphosis, thoracic region; M40.56 Lordosis, unspecified, lumbar region; M47.816 Spondylosis without myelopathy or radiculopathy, lumbar region; M51.379 Other intervertebral disc degeneration, lumbosacral region without mention of lumbar back pain or lower extremity pain
CPT/HCPCS: 72148

== ENCOUNTER → 2025-03-04 14:01 | Outpatient (BNVA) | payer MEDICAID, SELFPAY | PROVIDERS: PCP Family Medicine; Referring Provider Orthopaedic Surgery; Visit Provider Nurse Practitioner Family | DX: M25.551 Pain in right hip (principal) | CPT/HCPCS: 73502 ==

== ENCOUNTER 2025-04-17 08:17 | Day surgery (SDC) | payer MEDICAID, SELFPAY ==
[2025-04-17 08:38] VITALS: BP 155/92; PULSE 69; RESP 18; TEMP 36.1; O2SAT 99; BMI 22.8
--- NOTE | 2025-04-17 08:59 | ANES.PREANE2 ---
Pre-Anesthetic Assessment Height/Weight: Height 1.73 m Weight 68.039 kg Temp Pulse Resp BP Pulse Ox O2 Del Method 97 F L 69 18 155/92 99 Room Air 04/17/25 08:38 04/17/25 08:38 04/17/25 08:38 04/17/25 08:38 04/17/25 08:38 04/17/25 08:38 Preop Diagnosis: screening Operation Date: 04/17/25 10:20 Proposed Procedures p EGD EGD with Biopsy [id number] G0105 K29.60 K62.89 Z12.11(Not Applicable) - Joanthan Peres MD s Colonoscopy(Not Applicable) - Jonathan Peres MD Familial anesthetic complications: none Was Beta Grace taken within 24 hours: Yes Was Clonidine taken within 24 hours: N/A Last intake: Intake Last Liquid Date 04/16/25 Last Liquid Time 20:00 Last Solid Date 04/15/25 Last Solid Time 18:00 Social Tobacco and No alcohol 1/2 PPD Exam alert, oriented x 3, clear to auscultation bilaterally and regular rate & rhythm Airway Submandibular: within normal limits Cervical ROM: within normal limits Mallampati: Class II Dentition: false Comments: Comments: 3 bottom teeth History/ROS No significant history except as noted and No significant complaints Pulmonary Exertional Dyspnea CV/HEM Hypertension None reported Hepatic None reported GI Gastroesophageal Reflux Disease Metabolic Diabetes Mellitus [facility] [place] None reported Chronic Pain Neuropsych Anxiety Anesthetic Plan ASA status: 3 Anesthesia: MAC Risk of > 500 ml blood loss (7ml/kg in children): No Medications/Allergies Home Medications ?Medication ?Instructions ?Recorded ?Confirmed ?Last Taken ?Type pen needle, diabetic 32 gauge x #100 ea 04/29/24 04/17/25 Unknown Rx (TechLITE Pen Needle) potassium chloride 10 mEq 10 meq PO DAILY #90 tabs 07/09/24 04/17/25 04/16/25 Rx tablet,extended release blood sugar diagnostic (True #100 ea 09/18/24 04/17/25 Unknown Rx Metrix Glucose Test Strip) blood-glucose meter (True Metrix #1 ea 09/18/24 04/17/25 Unknown Rx Air Glucose Meter kit) lancets (Accu-Chek Softclix #200 ea 09/19/24 04/17/25 Unknown Rx Lancets) metoprolol tartrate 50 mg tablet 50 mg PO BID #60 tabs 11/07/24 04/17/25 04/17/25 Rx penicillin V potassium 500 mg 500 mg PO BID chronic dental 01/01/25 04/17/25 1 Month Ago Rx tablet infection #40 tabs ~03/14/25 furosemide 20 mg tablet (Lasix) 20 mg PO DAILY #90 tabs 01/15/25 04/17/25 04/16/25 Rx insulin NPH-regular 70-30 U-100 20 unit (0.2 mL) SUBCUT BID #15 mL 01/24/25 04/17/25 04/16/25 12:00 Rx insulin 100 unit/mL subcutaneous 10 pen (Humulin 70/30 U-100 KwikPen) polyethylene glycol 3350 17 17 g PO BID 5 days #170 grams 04/01/25 04/17/25 04/11/25 Rx gram/dose oral powder (Miralax) hydrocodone 10 mg-acetaminophen 1 tab PO Q8H PRN pain 30 days #90 04/02/25 04/17/25 04/17/25 Rx 325 mg tablet tabs amlodipine 5 mg tablet 5 mg PO BID 04/14/25 04/17/25 04/17/25 History atorvastatin 20 mg tablet 20 mg PO DAILY 04/14/25 04/17/25 04/15/25 History celecoxib 200 mg capsule 200 mg PO BID 04/16/25 04/17/25 04/17/25 History gabapentin 400 mg capsule 400 mg PO DAILY 04/17/25 04/17/25 04/17/25 History Allergies Allergy/AdvReac Type Severity Reaction Status Date / Time pregabalin Allergy ADR-Vomitin Verified 04/14/25 09:13 g Sulfa (Sulfonamide Allergy ALGY-Rash Verified 04/14/25 09:13 Antibiotics) Current Medications Generic Name Dose Route Start Last Admin Trade Name Freq PRN Reason Stop Dose Admin Sodium Chloride 1,000 mls @ 15 mls/hr 04/17/25 08:27 04/17/25 08:47 Sodium Chloride 0.9% IV 04/18/25 08:26 15 mls/hr .Q24H PRN Administration COLONOSCOPY FLUIDS PFSH Anesthesia Medical History (Updated 04/01/25 @ 13:43 by Jonathan Peres MD) Essential hypertension Diabetes mellitus Family History (Updated 04/01/25 @ 13:24 by Forrest Holman LPN) Sister Lymphoma Mother Ovarian cancer Social History Smoking and tobacco/nicotine status: current every day tobacco/nicotine user
--- NOTE | 2025-04-17 09:11 | W.PM.OPSUD ---
Surgery/Procedure H&P Update DATE OF PROCEDURE: April 17, 2025 DATE H&P PERFORMED: 04/01/25 H&P UPDATE INFORMATION: I have reviewed H&P completed within last 30 days, I have examined patient prior to procedure, No changes to prior documentation, H&P is in [facility] EMR on date indicated and Risks and benefits of the procedure reviewed PREOP DIAGNOSIS: screening PLANNED PROCEDURE: Operation Date: 04/17/25 10:20 Proposed Procedures p EGD EGD with Biopsy [id number] G0105 K29.60 K62.89 Z12.11(Not Applicable) - Jonathan Peres MD s Colonoscopy(Not Applicable) - Jonathan Peres MD
[2025-04-17 10:55] VITALS: BP 134/93; PULSE 71; RESP 18; TEMP 36.1; O2SAT 99
[2025-04-17 11:22] VITALS: BP 136/85; PULSE 60; RESP 18; O2SAT 97
--- NOTE | 2025-04-17 11:30 | ANE.PACU2 ---
Inpatient post-anesthesia follow up: Airway intact: Yes Vital signs: Temperature 97 F Pulse Rate 60 Respiratory Rate 18 Blood Pressure 136/85 Pulse Oximetry 97 Oxygen Delivery Me thod Room Air Oxygen Flow Rate Fraction of Inspir ed Oxygen Hydration adequate: Yes Nausea and vomiting: No Pain level: 1 Mental status: Baseline
== END 2025-04-17 11:30 | disposition home or self-care (01) ==
PROVIDERS: Family Provider Family Medicine; PCP Nurse Practitioner Family; Visit Provider Surgery
PROC: 0DJ08ZZ Inspection of Upper Intestinal Tract, Via Natural or Artificial Opening Endoscopic (ICD-10-PCS; principal; 2025-04-17 10:20)
PROC: 0DJD8ZZ Inspection of Lower Intestinal Tract, Via Natural or Artificial Opening Endoscopic (ICD-10-PCS; CPT 45378; 2025-04-17 10:20)
DX: R19.7 Diarrhea, unspecified (principal); K62.89 Other specified diseases of anus and rectum; K57.30 Diverticulosis of large intestine without perforation or abscess without bleeding; K29.60 Other gastritis without bleeding; K29.70 Gastritis, unspecified, without bleeding; K29.80 Duodenitis without bleeding; I10 Essential (primary) hypertension; K21.9 Gastro-esophageal reflux disease without esophagitis; E11.9 Type 2 diabetes mellitus without complications; F41.9 Anxiety disorder, unspecified; Z79.4 Long term (current) use of insulin; Z79.891 Long term (current) use of opiate analgesic; Z80.41 Family history of malignant neoplasm of ovary; Z80.7 Family history of other malignant neoplasms of lymphoid, hematopoietic and related tissues; F17.200 Nicotine dependence, unspecified, uncomplicated
CPT/HCPCS: 36416; 43239; 45380; 82962; 88305; J2704; J7030

== ENCOUNTER → 2025-05-01 16:01 | Outpatient (BNVA) | payer MEDICAID, SELFPAY | PROVIDERS: Family Provider Family Medicine; PCP Nurse Practitioner Family; Visit Provider Family Medicine | DX: E11.9 Type 2 diabetes mellitus without complications (principal); Z79.4 Long term (current) use of insulin; I10 Essential (primary) hypertension; E78.00 Pure hypercholesterolemia, unspecified | CPT/HCPCS: 80053; 83036 ==